=== PATIENT | male | born 1955 | race Caucasian/White ===

== ENCOUNTER → 2016-09-28 | Outpatient (CLI) | payer MEDICAID | LOC: MW.CHRC 14:46 | PROVIDERS: ATTEND Family Medicine | DX: K59.00 Constipation, unspecified (principal) | CPT/HCPCS: 36415; 80053; 82140; 85025 ==

== ENCOUNTER → 2016-12-01 | Outpatient (CLI) | payer MEDICAID ==
--- NOTE | 2016-12-05 09:04 | CR ---
EXAMINATION: The lumbar spine HISTORY: Low back pain COMPARISON: None TECHNIQUE: AP and lateral views FINDINGS: There is mild wedging of the L1 vertebral body. Bone mineralization otherwise appears norm al to mildly osteopenic. Mild marginal osteophytes are noted. No acute appearing fracture or disloca tion. The SI joints are symmetric. The vertebral body heights are grossly maintained. IMPRESSION: 1. Mild compression of the L1 vertebral body. 2. Mild degenerative changes noted.
== END ==
LOC: MW.CHRC 13:31
PROVIDERS: ATTEND Family Medicine
DX: M54.5 Low back pain (principal)
CPT/HCPCS: 72100; 72100-26

== ENCOUNTER → 2016-12-09 | Outpatient (CLI) | payer MEDICAID ==
--- NOTE | 2016-12-12 12:24 | CT ---
EXAM DATE: 12/09/16 PATIENT'S AGE: 61 Patient: KESHAWN HEARN Facility: [facility] Site . Site : [id number] Study: CT-Spine Lumbar WO CONT MW-12/09/2016 4:51:57 PM Ordering Physician: Saima Damon Final Report: Indication: 61-year-old male. L1 compression deformity noted on x-ray December 01, 2016. Cirrhosis. TIPS shunt. Technique: Axial images at 2 and 3 mm collimation. Raw data re-formatted in sagittal and coronal planes. Comparison: Pertinent portions of an abdomen/pelvis CT September 14, 2016. Findings: Mild lumbar scoliosis is convex right. There is mild chronic loss of vertebral body height at L1 with superior endplate Schmorl node. There are no acute fracture lines. T11-12: Minor anterior marginal spurring. Mild left side arthrosis. No significant central or foraminal. T12-L1: Anterior marginal spurring. No central or foraminal stenosis. L1-2: Disc bulge. Left far lateral marginal osteophyte. Minor retrolisthesis. No significant central or foraminal stenosis. L2-3: Annular bulge. Minor anterior spurring. Superior endplate Schmorl node. No significant central or foraminal stenosis. L3-4: Disc bulge. Anterior marginal spurring. Minor retrolisthesis. Mild facet arthrosis. No significant central or foraminal stenosis. L4-5: Mild facet arthrosis. Schmorl is nodes. Annular bulge. No significant central or foraminal stenosis. L5-S1: Moderate facet arthrosis. Annular bulge. No significant central or foraminal stenosis. Visualized portions sacrum are normal. Bridging osteophyte at the anterior superior aspect the left SI joint. Impression: 1. No evidence for acute lumbar compression fracture. 2. Morphology of the lumbar vertebral bodies is unchanged as far back as September 14, 2016. 3. Multilevel Schmorl nodes and mild chronic loss of vertebral body height at L1. 4. Mild multilevel spondylosis/listhesis detailed above without significant central or foraminal stenosis. Please note that all CT scans at this facility use dose modulation, iterative reconstruction, and/or weight-based dosing when appropriate to reduce radiation dose to as low as reasonably achievable. Dictated by Андрей Barrett MD @ Dec 10 2016 12:27PM Signed by: Андрей Barrett MD @12/10/2016 12:36:54 PM (Electronic Signature) Report Signed by Proxy. MTDD
== END ==
LOC: MW.CHRC 15:48
PROVIDERS: ATTEND Family Medicine
DX: S32.010A Wedge compression fracture of first lumbar vertebra, initial encounter for closed fracture (principal)
CPT/HCPCS: 72131; 72131-26

== ENCOUNTER 2016-12-11 14:43 | Emergency (ER) | payer MEDICAID ==
[2016-12-11] MEDS ORDERED: Gabapentin 300 MG Cap PO ONE (14:59)
--- NOTE | 2016-12-11 16:31 | EDM.PDOC ---
ED HPI GENERAL MEDICAL PROBLEM - General Chief Complaint: Medication Administration Stated Complaint: BACK PAIN Time Seen by Provider: 12/11/16 15:00 Source of Information: Reports: Patient History Limitations: Reports: No Limitations - History of Present Illness INITIAL COMMENTS - FREE TEXT/NARRATIVE: History of present illness: [61-year-old male comes in complaining of chronic pain indicates that he has significant amount of medication that are not helping him with his back pain. Patient indicates that he has some fractures of his vertebrae that he has a followup appointment for tomorrow but he comes in today seeking some help with his pain that he states his mid back and radiates down to both legs] Review of systems: As per history of present illness and below otherwise all systems reviewed and negative. Past medical history: As per history of present illness and as reviewed below otherwise noncontributory. Surgical history: As per history of present illness and as reviewed below otherwise noncontributory. Social history: No reported history of drug or alcohol abuse. Family history: As per history of present illness and as reviewed below otherwise noncontributory. Physical exam: HEENT: Atraumatic, normocephalic, pupils reactive, negative for conjunctival pallor or scleral icterus, mucous membranes moist, throat clear, neck supple, nontender, trachea midline. Lungs: Clear to auscultation, breath sounds equal bilaterally, chest nontender. Heart: S1S2, regular, negative for clicks, rubs, or JVD. Abdomen: Soft, nondistended, nontender. Negative for masses or hepatosplenomegaly. Negative for costovertebral tenderness. Pelvis: Stable nontender. Genitourinary: Deferred. Rectal: Deferred. Extremities: Atraumatic, negative for cords or calf pain. Neurovascular unremarkable. Neuro: Awake, alert, oriented. Cranial nerves II through XII unremarkable. Cerebellum unremarkable. Motor and sensory unremarkable throughout. Exam nonfocal. Close as well as benign save as noted in history of present illness subjective complaints and guarding noted Diagnostics: [] Therapeutics: [Gabapentin] Impression: [Back pain] Plan: [Appointment tomorrow] Definitive disposition and diagnosis as appropriate pending reevaluation and review of above. Back Pain Score (Numeric/FACES): 10 - Related Data Allergies Allergy/AdvReac Type Severity Reaction Status Date / Time codeine Allergy Hives Verified 12/11/16 14:53 zolpidem [From Ambien] AdvReac Acid Reflux Verified 12/11/16 14:53 Home Meds: Home Meds Diltiazem [Tiazac] 120 mg PO DAILY 10/19/14 [History] Furosemide [Lasix] 40 mg PO QAM 10/19/14 [History] Propranolol [Inderal] 10 mg PO BID 10/19/14 [History] Rifaximin [Xifaxan] 550 mg PO BID 10/20/14 [History] Cyclobenzaprine [Flexeril] 10 mg PO BID 04/30/16 [History] Prochlorperazine [Compazine] 1 tab PO Q4H PRN 04/30/16 [History] Cephalexin [Keflex] 500 mg PO QID #28 capsule 09/03/16 [Rx] oxyCODONE HCl [Oxycodone HCl] 30 mg PO Q6HR 09/03/16 [History] Lactulose [Cephulac] 30 ml PO BID 09/14/16 [History] Past Medical History HEENT History: Reports: None Cardiovascular History: Reports: Arrhythmia Other Cardiovascular History: A Fib Respiratory History: Reports: None Gastrointestinal History: Reports: Bowel Obstruction, Cirrhosis Genitourinary History: Reports: None Musculoskeletal History: Reports: None Neurological History: Reports: None Psychiatric History: Reports: Addiction Other Psychiatric History: ETOH Endocrine/Metabolic History: Reports: None Hematologic History: Reports: None Immunologic History: Reports: None Oncologic (Cancer) History: Reports: None Dermatologic History: Reports: None - Infectious Disease History Infectious Disease History: Reports: Hepatitis C - Past Surgical History Head Surgeries/Procedures: Reports: None Musculoskeletal Surgical History: Reports: Other (See Below) Social & Family History - Family History Family Medical History: Noncontributory - Tobacco Use Smoking Status *Q: Never Smoker Years of Tobacco use: 20 Used Tobacco, but Quit: Yes Month Tobacco Last Used: 30 years ago Second Hand Smoke Exposure: No - Caffeine Use Caffeine Use: Reports: None Caffeine Use Comment: unknown - Alcohol Use Days Per Week of Alcohol Use: 0 - Recreational Drug Use Recreational Drug Use: No Drug Use in Last 12 Months: No Recreational Drug Type: Reports: Amphetamines (Speed), Cocaine, Marijuana/ Hashish Recreational Drug Use Frequency: Not Used In Over 1 Year Recreational Drug Last Use: november 2013 ED ROS GENERAL - Review of Systems Review Of Systems: See Below (See history of present illness) ED EXAM, GENERAL - Physical Exam Exam: See Below (History of present illness) Course - Vital Signs Last Recorded V/S: Last Vital Signs Temp 36.3 C 12/11/16 15:35 Pulse 111 H 12/11/16 14:50 Resp 16 12/11/16 14:50 BP 128/83 12/11/16 15:35 Pulse Ox 96 12/11/16 14:50 - Orders/Labs/Meds Meds: Medications Discontinued Medications Generic Name Dose Route Start Last Admin Trade Name Caro PRN Reason Stop Dose Admin Gabapentin 300 mg 12/11/16 14:59 12/11/16 15:33 Neurontin PO 12/11/16 15:00 300 mg ONETIME ONE Administration Departure - Departure Time of Disposition: 16:29 Disposition: Home, Self-Care 01 Condition: good Clinical Impression: Back pain - Discharge Information Forms: ED Department Discharge Additional Instructions: The following information is given to patients seen in the emergency department who are being discharged to home. This information is to outline your options for follow-up care. We provide all patients seen in our emergency department with a follow-up referral. The need for follow-up, as well as the timing and circumstances, are variable depending upon the specifics of your emergency department visit. If you don't have a primary care physician on staff, we will provide you with a referral. We always advise you to contact your personal physician following an emergency department visit to inform them of the circumstance of the visit and for follow-up with them and/or the need for any referrals to a consulting specialist. The emergency department will also refer you to a specialist when appropriate. This referral assures that you have the opportunity for follow-up care with a specialist. All of these measure are taken in an effort to provide you with optimal care, which includes your follow-up. Under all circumstances we always encourage you to contact your private physician who remains a resource for coordinating your care. When calling for follow-up care, please make the office aware that this follow-up is from your recent emergency room visit. If for any reason you are refused follow-up, please contact the [facility] Emergency Department at and asked to speak to the emergency department charge nurse. Followup the primary care provider tomorrow schedule Continue taking medication as needed Return to ER only for reasons as needed as discussed
[2016-12-11 17:03] VITALS: BP 150/120
== END 2016-12-11 16:55 | disposition home or self-care (01) ==
LOC: MW.ED 14:43
DX: M54.9 Dorsalgia, unspecified (principal); I48.91 Unspecified atrial fibrillation; Z88.8 Allergy status to other drugs, medicaments and biological substances; Z88.5 Allergy status to narcotic agent; Z86.19 Personal history of other infectious and parasitic diseases
CPT/HCPCS: 99281; A9270; 99283

== ENCOUNTER 2017-01-12 09:15 | Emergency (ER) | payer MEDICAID ==
--- NOTE | 2017-01-12 10:10 | EDM.PDOC ---
ED HPI GENERAL MEDICAL PROBLEM - General Chief Complaint: Abdominal Pain Stated Complaint: CHECK STITCHES Time Seen by Provider: 01/12/17 09:52 - History of Present Illness INITIAL COMMENTS - FREE TEXT/NARRATIVE: HISTORY AND PHYSICAL: History of present illness: The patient is a 61-year-old male who is well known to me as he has a history of cirrhosis and liver disease and other medical problems for which she has been in the ER in the past and he presents today for evaluation of his incision on his abdomen. Patient underwent ventral hernia repair in [facility] in [place] 3 days ago and noticed some drainage from the wound today and he is concerned. He did not contact his physician that did the surgery and he also says that he is having some pain for which he needs pain medication. He says that he received pain medication at his discharge but he has run out and it was dilated. Review of systems: As per history of present illness and below otherwise all systems reviewed and negative. Past medical history: As per history of present illness and as reviewed below otherwise noncontributory. Surgical history: As per history of present illness and as reviewed below otherwise noncontributory. Social history: No reported history of drug or alcohol abuse. Family history: As per history of present illness and as reviewed below otherwise noncontributory. Physical exam: Gen.: Well-developed well-nourished man who is nontoxic and vital signs of a noted by me. HEENT: Atraumatic, normocephalic, negative for conjunctival pallor or scleral icterus, mucous membranes moist, throat clear, neck supple, nontender, trachea midline. Lungs: Clear to auscultation, breath sounds equal bilaterally, chest nontender. Heart: S1S2, regula rate and rhythm no overt murmurs Abdomen: Soft, nondistended, nontender. Negative for masses but he has a very enlarged liver which is not atypical for this patient and it is nontender, bowel sounds are normoactive. His midline ventral incision is clean and dry with ty intact and has minimal pink erythema at the surround and there is no fluctuance and no overt drainage that I can express. On the patient's jeans some serosanguineous fluid is seen and when he dabs it with the tissue you can see the serosanguineous fluid. I am not able to express any of this. He has no discrete tenderness in this region. Pelvis: Stable nontender. Genitourinary: Deferred. Rectal: Deferred. Extremities: Atraumatic, negative for cords or calf pain. Neurovascular unremarkable. Neuro: Awake, alert, oriented. Cranial nerves II through XII unremarkable. Cerebellum unremarkable. Motor and sensory unremarkable throughout. Exam nonfocal. Diagnostics: [] Therapeutics: Wound care I reassured the patient that this serosanguineous fluid was not worrisome and I advised him on things to be monitoring and reasons to return to the ED. I also told him to contact his surgeon for pain medication and that I could give him a few tablets for today but otherwise he would need to contact that doctor or his local provider Dr. Coates for more meds. He is somewhat upset about that. In light of his liver disease I offered him Vicoprofen which she says he will not take Motrin products and he will not take tramadol. He says he has taken hydrocodone and Percocet in the past so I'll only give him a few hydrocodone in light of his liver history. Again I advised him to follow-up with his primary care or his surgeon Impression: Abdominal wound evaluation stable Definitive disposition and diagnosis as appropriate pending reevaluation and review of above. Abdomen Pain Score (Numeric/FACES): 9 - Related Data Allergies Allergy/AdvReac Type Severity Reaction Status Date / Time codeine Allergy Hives Verified 01/12/17 09:43 zolpidem [From Ambien] AdvReac Acid Reflux Verified 01/12/17 09:43 Home Meds: Home Meds Diltiazem [Tiazac] 120 mg PO DAILY 10/19/14 [History] Propranolol [Inderal] 10 mg PO BID 10/19/14 [History] Rifaximin [Xifaxan] 550 mg PO BID 10/20/14 [History] Cyclobenzaprine [Flexeril] 10 mg PO DAILY 04/30/16 [History] Prochlorperazine [Compazine] 1 tab PO Q4H PRN 04/30/16 [History] Cephalexin [Keflex] 500 mg PO QID #28 capsule 09/03/16 [Rx] Lactulose [Cephulac] 30 ml PO BID 09/14/16 [History] Past Medical History HEENT History: Reports: None Cardiovascular History: Reports: Arrhythmia Other Cardiovascular History: A Fib Respiratory History: Reports: None Gastrointestinal History: Reports: Bowel Obstruction, Cirrhosis Genitourinary History: Reports: None Musculoskeletal History: Reports: None Neurological History: Reports: None Psychiatric History: Reports: Addiction Other Psychiatric History: History of ETOH Endocrine/Metabolic History: Reports: None Hematologic History: Reports: None Immunologic History: Reports: None Oncologic (Cancer) History: Reports: None Dermatologic History: Reports: None - Infectious Disease History Infectious Disease History: Reports: Hepatitis C - Past Surgical History Head Surgeries/Procedures: Reports: None GI Surgical History: Reports: Cholecystectomy, Hernia, Abdominal, Hernia, Inguinal Musculoskeletal Surgical History: Reports: Other (See Below) Social & Family History - Family History Family Medical History: Noncontributory - Tobacco Use Smoking Status *Q: Former Smoker Years of Tobacco use: 5 Used Tobacco, but Quit: Yes Month Tobacco Last Used: 1 Second Hand Smoke Exposure: No - Caffeine Use Caffeine Use: Reports: None Caffeine Use Comment: unknown - Alcohol Use Days Per Week of Alcohol Use: 0 - Recreational Drug Use Recreational Drug Use: No Drug Use in Last 12 Months: No Recreational Drug Type: Reports: Amphetamines (Speed), Cocaine, Marijuana/ Hashish Recreational Drug Use Frequency: Not Used In Over 1 Year Recreational Drug Last Use: november 2013 ED ROS GENERAL - Review of Systems Review Of Systems: ROS reveals no pertinent complaints other than HPI. ED EXAM, GENERAL - Physical Exam Exam: See Below (See dictation) Course - Vital Signs Last Recorded V/S: Last Vital Signs Temp 35.9 C 01/12/17 09:30 Pulse 90 01/12/17 09:30 Resp 15 01/12/17 09:30 BP 131/93 H 01/12/17 09:30 Pulse Ox 98 01/12/17 09:30 Departure - Departure Time of Disposition: 10:10 Disposition: Home, Self-Care 01 Condition: Good Clinical Impression: Encounter for wound re-check - Discharge Information Forms: ED Department Discharge Additional Instructions: The following information is given to patients seen in the emergency department who are being discharged to home. This information is to outline your options for follow-up care. We provide all patients seen in our emergency department with a follow-up referral. The need for follow-up, as well as the timing and circumstances, are variable depending upon the specifics of your emergency department visit. If you don't have a primary care physician on staff, we will provide you with a referral. We always advise you to contact your personal physician following an emergency department visit to inform them of the circumstance of the visit and for follow-up with them and/or the need for any referrals to a consulting specialist. The emergency department will also refer you to a specialist when appropriate. This referral assures that you have the opportunity for followup care with a specialist. All of these measure are taken in an effort to provide you with optimal care, which includes your followup. Under all circumstances we always encourage you to contact your private physician who remains a resource for coordinating your care. When calling for followup care, please make the office aware that this follow-up is from your recent emergency room visit. If for any reason you are refused follow-up, please contact the [facility] emergency department at and ask to speak to the emergency department charge nurse. [address] [place] [address] Please follow-up with Dr. Coates in the clinic for further pain medication and evaluation and also contacted her surgeon at [facility] for further management recommendations and pain recommendations. Expect some drainage from the area and return to ER as needed and as we discussed.
== END 2017-01-12 10:25 | disposition home or self-care (01) ==
LOC: MW.ED 09:15
CPT/HCPCS: 99282; 99283

== ENCOUNTER 2017-01-17 01:10 | Emergency (ER) | payer MEDICAID ==
[2017-01-17] MEDS ORDERED: Sodium Chloride 0.9% 2.5 ML Syringe FLUSH PRN (01:45)
[2017-01-17] MEDS ORDERED: Sodium Chloride 0.9% 10 ML Syringe FLUSH PRN (01:45)
[2017-01-17] MEDS ORDERED: Sodium Chloride 0.9% 1,000 ML IV SCH (01:45)
--- NOTE | 2017-01-17 01:49 | EDM.PDOC ---
[id number]: STOMACH SWOLLEN Time Seen by Provider: 01/17/17 01:38 - History of Present Illness INITIAL COMMENTS - FREE TEXT/NARRATIVE: HISTORY AND PHYSICAL: History of present illness: Patient is a 61-year-old white male with history of liver cirrhosis and multiple other medical problems who is one-week status post herniorrhaphy for abdominal wall hernia who comes in now with redness swelling and pain incision site he's not report any fever or chills he states it is slightly warmer there' s been some intermittent scant discharge in the erythema has increased per significant other. He's had no chest pain shortness of breath or other concern Review of systems: As per history of present illness and below otherwise all systems reviewed and negative. Past medical history: As per history of present illness and as reviewed below otherwise noncontributory. Surgical history: As per history of present illness and as reviewed below otherwise noncontributory. Social history: No reported history of drug or alcohol abuse. Family history: As per history of present illness and as reviewed below otherwise noncontributory. Physical exam: HEENT: Atraumatic, normocephalic, pupils reactive, negative for conjunctival pallor or scleral icterus, mucous membranes moist, throat clear, neck supple, nontender, trachea midline. Lungs: Clear to auscultation, breath sounds equal bilaterally, chest nontender. Heart: S1S2, regular, negative for clicks, rubs, or JVD. Abdomen: Soft, protuberant ty are noted be in place in his midline incision with a herniorrhaphy was performed there is a fairly large area of surrounding erythema slightly warm to the touch there's some scant dried discharge noted Negative for masses or hepatosplenomegaly. Negative for costovertebral tenderness. Pelvis: Stable nontender. Genitourinary: Deferred. Rectal: Deferred. Extremities: Atraumatic, negative for cords or calf pain. Neurovascular unremarkable. Neuro: Awake, alert, oriented. Cranial nerves II through XII unremarkable. Cerebellum unremarkable. Motor and sensory unremarkable throughout. Exam nonfocal. Diagnostics: CBC CMP lactic acid blood culture 2 chest x-ray EKG CT abdomen and pelvis with IV contrast Therapeutics: Normal saline at 125 mL an hour vancomycin 1 g IV Impression: #1 observation one-week status post herniorrhaphy #2 history of hepatic cirrhosis #3 cellulitis, abdominal wall Definitive disposition and diagnosis as appropriate pending reevaluation and review of above. Abdominal Pain Score (Numeric/FACES): 6 - Related Data Allergies Allergy/AdvReac Type Severity Reaction Status Date / Time codeine Allergy Hives Verified 01/17/17 01:26 morphine Allergy Hallucinati Verified 01/17/17 01:31 ons zolpidem [From Ambien] AdvReac Acid Reflux Verified 01/17/17 01:26 Home Meds: Home Meds Diltiazem [Tiazac] 120 mg PO DAILY 10/19/14 [History] Propranolol [Inderal] 10 mg PO BID 10/19/14 [History] Rifaximin [Xifaxan] 550 mg PO BID 10/20/14 [History] Cyclobenzaprine [Flexeril] 10 mg PO DAILY 04/30/16 [History] Lactulose [Cephulac] 30 ml PO BID 09/14/16 [History] Past Medical History HEENT History: Reports: Impaired Vision Other HEENT History: wears glasses Cardiovascular History: Reports: Afib, Arrhythmia Other Cardiovascular History: A Fib Respiratory History: Reports: None Gastrointestinal History: Reports: Bowel Obstruction, Cirrhosis Genitourinary History: Reports: None Musculoskeletal History: Reports: None Neurological History: Reports: None Psychiatric History: Reports: Addiction Other Psychiatric History: History of ETOH Endocrine/Metabolic History: Reports: None Hematologic History: Reports: None Immunologic History: Reports: None Oncologic (Cancer) History: Reports: None Dermatologic History: Reports: None - Infectious Disease History Infectious Disease History: Reports: Chicken Pox, Hepatitis C - Past Surgical History Head Surgeries/Procedures: Reports: None GI Surgical History: Reports: Cholecystectomy, Hernia, Abdominal, Hernia, Inguinal Other GI Surgeries/Procedures: liver shunt; hernia surgery 12/2016 Musculoskeletal Surgical History: Reports: Other (See Below) Social & Family History - Family History Family Medical History: Noncontributory - Tobacco Use Smoking Status *Q: Never Smoker Years of Tobacco use: 5 Used Tobacco, but Quit: Yes Month Tobacco Last Used: 1 Second Hand Smoke Exposure: No - Caffeine Use Caffeine Use: Reports: None Caffeine Use Comment: unknown - Alcohol Use Days Per Week of Alcohol Use: 0 - Recreational Drug Use Recreational Drug Use: No Drug Use in Last 12 Months: No Recreational Drug Type: Reports: Amphetamines (Speed), Cocaine, Marijuana/ Hashish Recreational Drug Use Frequency: Not Used In Over 1 Year Recreational Drug Last Use: november 2013 ED ROS GENERAL - Review of Systems Review Of Systems: ROS reveals no pertinent complaints other than HPI. ED EXAM, GENERAL - Physical Exam Exam: See Below (See dictation) Course - Vital Signs Last Recorded V/S: Last Vital Signs Temp 36.3 C 01/17/17 04:45 Pulse 99 01/17/17 04:45 Resp 22 H 01/17/17 04:45 BP 119/84 01/17/17 04:45 Pulse Ox 93 L 01/17/17 04:45 - Orders/Labs/Meds Labs: Laboratory Tests 01/17/17 01/17/17 01/17/17 Range/Units 01:50 01:50 01:50 WBC 6.57 (4.0-11.0) K/uL RBC 4.11 L (4.50-5.90) M/uL Hgb 14.2 (13.0-17.0) g/dL Hct 39.6 (38.0-50.0) % MCV 96.4 (80.0-98.0) fL MCH 34.5 H (27.0-32.0) pg MCHC 35.9 (31.0-37.0) g/dL RDW Std Deviation 44.8 (28.0-62.0) fl RDW Coeff of Michel 13 (11.0-15.0) % Plt Count 153 (150-400) K/uL MPV 9.20 (7.40-12.00) fL Neut % (Auto) 54.0 (48.0-80.0) % Lymph % (Auto) 29.2 (16.0-40.0) % Gordon % (Auto) 11.7 (0.0-15.0) % Eos % (Auto) 4.3 (0.0-7.0) % Baso % (Auto) 0.8 (0.0-1.5) % Neut # (Auto) 3.6 (1.4-5.7) K/uL Lymph # (Auto) 1.9 (0.6-2.4) K/uL Gordon # (Auto) 0.8 (0.0-0.8) K/uL Eos # (Auto) 0.3 (0.0-0.7) K/uL Baso # (Auto) 0.1 (0.0-0.1) K/uL Nucleated RBC % 0.0 /100WBC Nucleated RBCs # 0 K/uL INR 1.23 H (0.86-1.11) Lactate 1.4 (0.20-2.00) mmol/L Sodium (136-146) mmol/L Potassium (3.5-5.1) mmol/L Chloride (98-110) mmol/L Carbon Dioxide (21-31) mmol/L BUN (6.0-23.0) mg/dL Creatinine (0.6-1.5) mg/dL Est Cr Clr Drug Dosing mL/min Estimated GFR (MDRD) ml/min Glucose (60-110) mg/dL Calcium (8.8-10.8) mg/dL Total Bilirubin (0.1-1.5) mg/dL AST (5-40) IU/L ALT (8-54) IU/L Alkaline Phosphatase (40-150) Total Protein (6.0-8.0) g/dL Albumin (3.4-4.8) g/dL Globulin (2.0-3.5) g/dL Albumin/Globulin Ratio (1.3-2.8) Urine Color Urine Appearance Urine pH (5.0-8.0) Ur Specific Powell (1.001-1.035) Urine Protein (NEGATIVE) mg/dL Urine Glucose (UA) (NEGATIVE) mg/dL Urine Ketones (NEGATIVE) mg/dL Urine Occult Blood (NEGATIVE) Urine Nitrite (NEGATIVE) Urine Bilirubin (NEGATIVE) Urine Urobilinogen (<2.0) EU/dL Ur Leukocyte Esterase (NEGATIVE) Urine RBC (0-2/HPF) Urine WBC (0-5/HPF) Ur Epithelial Cells (NONE-FEW) Urine Bacteria (NEGATIVE) 01/17/17 01/17/17 Range/Units 01:50 03:30 WBC (4.0-11.0) K/uL RBC (4.50-5.90) M/uL Hgb (13.0-17.0) g/dL Hct (38.0-50.0) % MCV (80.0-98.0) fL MCH (27.0-32.0) pg MCHC (31.0-37.0) g/dL RDW Std Deviation (28.0-62.0) fl RDW Coeff of Michel (11.0-15.0) % Plt Count (150-400) K/uL MPV (7.40-12.00) fL Neut % (Auto) (48.0-80.0) % Lymph % (Auto) (16.0-40.0) % Gordon % (Auto) (0.0-15.0) % Eos % (Auto) (0.0-7.0) % Baso % (Auto) (0.0-1.5) % Neut # (Auto) (1.4-5.7) K/uL Lymph # (Auto) (0.6-2.4) K/uL Gordon # (Auto) (0.0-0.8) K/uL Eos # (Auto) (0.0-0.7) K/uL Baso # (Auto) (0.0-0.1) K/uL Nucleated RBC % /100WBC Nucleated RBCs # K/uL INR (0.86-1.11) Lactate (0.20-2.00) mmol/L Sodium 132 L (136-146) mmol/L Potassium 4.5 (3.5-5.1) mmol/L Chloride 99 (98-110) mmol/L Carbon Dioxide 24 (21-31) mmol/L BUN 14 (6.0-23.0) mg/dL Creatinine 1.0 (0.6-1.5) mg/dL Est Cr Clr Drug Dosing 91.33 mL/min Estimated GFR (MDRD) > 60.0 ml/min Glucose 100 (60-110) mg/dL Calcium 9.5 (8.8-10.8) mg/dL Total Bilirubin 2.1 H (0.1-1.5) mg/dL AST 40 (5-40) IU/L ALT 27 (8-54) IU/L Alkaline Phosphatase 122 (40-150) Total Protein 6.9 (6.0-8.0) g/dL Albumin 3.5 (3.4-4.8) g/dL Globulin 3.4 (2.0-3.5) g/dL Albumin/Globulin Ratio 1.0 L (1.3-2.8) Urine Color YELLOW Urine Appearance CLEAR Urine pH 6.0 (5.0-8.0) Ur Specific Powell <= 1.005 (1.001-1.035) Urine Protein NEGATIVE (NEGATIVE) mg/dL Urine Glucose (UA) NEGATIVE (NEGATIVE) mg/dL Urine Ketones NEGATIVE (NEGATIVE) mg/dL Urine Occult Blood NEGATIVE (NEGATIVE) Urine Nitrite NEGATIVE (NEGATIVE) Urine Bilirubin NEGATIVE (NEGATIVE) Urine Urobilinogen 1.0 (<2.0) EU/dL Ur Leukocyte Esterase NEGATIVE (NEGATIVE) Urine RBC 0-1 (0-2/HPF) Urine WBC 0-1 (0-5/HPF) Ur Epithelial Cells MANY (NONE-FEW) Urine Bacteria FEW (NEGATIVE) Meds: Medications Discontinued Medications Generic Name Dose Route Start Last Admin Trade Name Freq PRN Reason Stop Dose Admin Sodium Chloride 1,000 mls @ 125 mls/hr 01/17/17 01:45 01/17/17 01:57 Normal Saline IV 125 mls/hr STAT JALEESA Administration Vancomycin HCl 1 gm/ Sodium 250 mls @ 250 mls/hr 01/17/17 01:45 01/17/17 02: 00 Chloride IV 01/17/17 02:44 250 mls/hr ONETIME ONE Administration Iopamidol 100 ml 01/17/17 03:11 01/17/17 03:12 Isovue Multipack-370 (76%) IVPUSH 01/17/17 03:12 100 ml ONETIME STA Administration Sodium Chloride 10 ml 01/17/17 01:45 Saline Flush FLUSH ASDIRECTED PRN Keep Vein Open Sodium Chloride 2.5 ml 01/17/17 01:45 Saline Flush FLUSH ASDIRECTED PRN Keep Vein Open Departure - Departure Time of Disposition: 03:00 Disposition: Home, Self-Care 01 Condition: Good Clinical Impression: Cellulitis - Discharge Information Instructions: Abdominal Pain, Adult, [id number] Referrals: Jaylon Coates MD [Primary Care Provider] - Forms: ED Department Discharge
[2017-01-17 02:16] LABS: CHLORIDE,CL 99 mmol/L (98-110); SODIUM,NA 132 mmol/L (136-146)
[2017-01-17] MEDS ORDERED: Iopamidol 755 MG/ML 500 ML Multipack Bottle IVPUSH STA (03:11)
[2017-01-17 05:15] VITALS: BP 119/84
--- NOTE | 2017-01-17 11:19 | CT ---
EXAM DATE: 01/17/17 PATIENT'S AGE: 61 Patient: KESHAWN HEARN Facility: [place], [place] Site . Site : 1955 Study: CT Abdomen/Pelvis W CONT [id number]/[id number]/2017 3:01:19 AM Ordering Physician: Bertha Roman Final Report: INDICATION: Status post herniorrhaphy January 09, 2017, now with drainage and abdominal pain TECHNIQUE: CT abdomen and pelvis acquired with 100 cc Isovue 370 IV contrast. COMPARISON: December 22, 2016 FINDINGS: Lower chest: Bilateral gynecomastia. . Liver: Cirrhosis with TIPS in place. No focal hepatic mass. . Spleen: Unremarkable. Pancreas: Unremarkable. Gallbladder and bile ducts: Status post cholecystectomy. Adrenal glands: Unremarkable. Kidneys: Stable left renal cyst. . GI tract: Large amount of stool within the colon. Vascular structures: Unremarkable. Lymph nodes: Unremarkable. Miscellaneous: Midline skin ty are noted consistent with history of umbilical herniorrhaphy. There is a small amount of fluid within the preperitoneal space and subcutaneous fat of the anterior abdominal wall directly deep to the skin ty. There is no definite rim enhancement to suggest abscess. No intra-abdominal abscess is seen. Mesh is seen along the right anterior abdominal wall from prior herniorrhaphy. There is a fat containing right inguinal hernia. Small amount of fluid is seen within the inguinal canal. Pelvic Organs: Unremarkable. Bones: Unremarkable for age. IMPRESSION: Small amount of fluid within the preperitoneal space and subcutaneous fat of the anterior abdominal wall directly deep to the midline umbilical herniorrhaphy skin ty. There is no definite rim enhancement to suggest abscess. No acute intra-abdominal process identified. Constipation. Hepatic cirrhosis with TIPS. Bilateral gynecomastia. Status post cholecystectomy. Please note that all CT scans at this facility use dose modulation, iterative reconstruction, and/or weight-based dosing when appropriate to reduce radiation dose to as low as reasonably achievable. Dictated by Vanessa Mabry MD @ Jan 17 2017 3:12AM (Electronic Signature) Report Signed by Proxy. [facility]
--- NOTE | 2017-01-17 11:19 | CR ---
EXAM DATE: 01/17/17 PATIENT'S AGE: 61 Patient: KESHAWN HEARN Facility: [place], [place] Site . Site : 1955 Study: XRay Chest [id number]/27/2017 3:01:58 AM Ordering Physician: Bertha Roman Final Report: INDICATION: Pain, shortness of breath TECHNIQUE: Chest 2 views. COMPARISON: Abdomen pelvis CT January 17, 2017 FINDINGS: Cardiovascular and mediastinum: Heart size and vasculature are normal in caliber and appearance. Mediastinum is within normal limits. Lungs and pleural spaces: Lungs are clear. No sign of infiltrate or mass. No sign of pleural effusion. No pneumothorax. Bones and soft tissues: No acute findings. Remote deformity of the distal left clavicle. IMPRESSION: No sign of acute disease. Dictated by Vanessa Mabry MD @ Jan 17 2017 3:10AM (Electronic Signature) Report Signed by Proxy. LOUIE
== END 2017-01-17 04:45 | disposition home or self-care (01) ==
LOC: MW.ED 01:10
DX: T81.4XXA Infection following a procedure, initial encounter (principal); L03.311 Cellulitis of abdominal wall; I48.91 Unspecified atrial fibrillation; Z88.5 Allergy status to narcotic agent; Z79.899 Other long term (current) drug therapy; Z88.8 Allergy status to other drugs, medicaments and biological substances; Z90.49 Acquired absence of other specified parts of digestive tract
CPT/HCPCS: 36415; 71020; 74177; 80053; 81001; 83605; 85025; 85610; 87040; 93005; 96361; 96365; 99285; J3370; J7040; J7050; Q9967; 99284

== ENCOUNTER 2017-01-22 12:57 | Emergency (ER) | payer MEDICAID ==
[2017-01-22] MEDS ORDERED: Sodium Chloride 0.9% 1,000 ML IV ONE (13:13)
[2017-01-22] MEDS ORDERED: Ketorolac 30 MG/ML SDV IVPUSH ONE (13:13)
[2017-01-22 13:49] LABS: CHLORIDE,CL 112 mmol/L (98-110); SODIUM,NA 136 mmol/L (136-146)
[2017-01-22] MEDS ORDERED: cefTRIAXone 2 GM in Premix Bag 1 BAG IV ONE (14:00)
--- NOTE | 2017-01-22 15:00 | EDM.PDOC ---
ED HPI GENERAL MEDICAL PROBLEM - General Chief Complaint: Skin Complaint Stated Complaint: TY COMING OUT FROM RECENT SURGERY Time Seen by Provider: 01/22/17 13:10 Source of Information: Reports: Patient History Limitations: Reports: No Limitations - History of Present Illness INITIAL COMMENTS - FREE TEXT/NARRATIVE: History of present illness: [61-year-old male comes in with concerns of ty spontaneously coming out of an incision site and some amount of drainage. He would like to have his wound evaluated. Patient indicates that he is currently on antibiotics.] Review of systems: As per history of present illness and below otherwise all systems reviewed and negative. Past medical history: As per history of present illness and as reviewed below otherwise noncontributory. Surgical history: As per history of present illness and as reviewed below otherwise noncontributory. Social history: No reported history of drug or alcohol abuse. Family history: As per history of present illness and as reviewed below otherwise noncontributory. Physical exam: HEENT: Atraumatic, normocephalic, pupils reactive, negative for conjunctival pallor or scleral icterus, mucous membranes moist, throat clear, neck supple, nontender, trachea midline. Lungs: Clear to auscultation, breath sounds equal bilaterally, chest nontender. Heart: S1S2, regular, negative for clicks, rubs, or JVD. Abdomen: Protuberant slightly tender abdomen with midline incision with some healing noted ty intact to areas that ty are no longer in place with slight dehisecense noted secondary to tension on incision line with serous drainage noted. Negative for masses or hepatosplenomegaly. Negative for costovertebral tenderness. Pelvis: Stable nontender. Genitourinary: Deferred. Rectal: Deferred. Extremities: Atraumatic, negative for cords or calf pain. Neurovascular unremarkable. Neuro: Awake, alert, oriented. Cranial nerves II through XII unremarkable. Cerebellum unremarkable. Motor and sensory unremarkable throughout. Exam nonfocal. Diagnostics: [CBC, CMP, lactic acid] Therapeutics: [2 g Rocephin, IV fluid, Toradol] Impression: [Poor wound healing] Plan: [Continue on current antibiotics a medication follow-up with surgeon] Definitive disposition and diagnosis as appropriate pending reevaluation and review of above. Abdominal Pain Score (Numeric/FACES): 9 - Related Data Allergies Allergy/AdvReac Type Severity Reaction Status Date / Time codeine Allergy Hives Verified 01/22/17 13:03 morphine Allergy Hallucinati Verified 01/22/17 13:03 ons zolpidem [From Ambien] AdvReac Acid Reflux Verified 01/22/17 13:03 Home Meds: Home Meds Diltiazem [Tiazac] 120 mg PO DAILY 10/19/14 [History] Propranolol [Inderal] 10 mg PO BID 10/19/14 [History] Rifaximin [Xifaxan] 550 mg PO BID 10/20/14 [History] Cyclobenzaprine [Flexeril] 10 mg PO DAILY 04/30/16 [History] Lactulose [Cephulac] 30 ml PO BID 09/14/16 [History] Past Medical History HEENT History: Reports: Impaired Vision Other HEENT History: wears glasses Cardiovascular History: Reports: Afib, Arrhythmia, Hypertension Other Cardiovascular History: A Fib Respiratory History: Reports: None Gastrointestinal History: Reports: Bowel Obstruction, Cirrhosis Genitourinary History: Reports: None Musculoskeletal History: Reports: None Neurological History: Reports: None Psychiatric History: Reports: Addiction Other Psychiatric History: History of ETOH Endocrine/Metabolic History: Reports: None Hematologic History: Reports: None Immunologic History: Reports: None Oncologic (Cancer) History: Reports: None Dermatologic History: Reports: None - Infectious Disease History Infectious Disease History: Reports: Chicken Pox, Measles, Mumps - Past Surgical History Head Surgeries/Procedures: Reports: None HEENT Surgical History: Reports: Tonsillectomy Cardiovascular Surgical History: Reports: None GI Surgical History: Reports: Cholecystectomy, Hernia, Abdominal, Hernia, Inguinal Other GI Surgeries/Procedures: liver shunt; hernia surgery 01/09/2017 Musculoskeletal Surgical History: Reports: None Social & Family History - Family History Family Medical History: Noncontributory - Tobacco Use Smoking Status *Q: Former Smoker Years of Tobacco use: 5 Used Tobacco, but Quit: Yes Month Tobacco Last Used: "35years ago" Second Hand Smoke Exposure: No - Caffeine Use Caffeine Use: Reports: Soda Caffeine Use Comment: 1drink/day - Alcohol Use Days Per Week of Alcohol Use: 0 - Recreational Drug Use Recreational Drug Use: No Drug Use in Last 12 Months: No Recreational Drug Type: Reports: Amphetamines (Speed), Cocaine, Marijuana/ Hashish Recreational Drug Use Frequency: Not Used In Over 1 Year Recreational Drug Last Use: november 2013 ED ROS GENERAL - Review of Systems Review Of Systems: See Below (See history of present illness) ED EXAM, SKIN/RASH Exam: See Below (See history of present illness) Course - Vital Signs Last Recorded V/S: Last Vital Signs Temp 36.2 C 01/22/17 13:01 Pulse 79 01/22/17 13:01 Resp 20 01/22/17 13:01 BP 124/82 01/22/17 13:01 Pulse Ox 97 01/22/17 13:01 - Orders/Labs/Meds Labs: Laboratory Tests 01/22/17 01/22/17 01/22/17 Range/Units 13:18 13:18 13:18 WBC 7.68 (4.0-11.0) K/uL RBC 4.37 L (4.50-5.90) M/uL Hgb 15.1 (13.0-17.0) g/dL Hct 42.1 (38.0-50.0) % MCV 96.3 (80.0-98.0) fL MCH 34.6 H (27.0-32.0) pg MCHC 35.9 (31.0-37.0) g/dL RDW Std Deviation 46.3 (28.0-62.0) fl RDW Coeff of Michel 13 (11.0-15.0) % Plt Count 153 (150-400) K/uL MPV 8.90 (7.40-12.00) fL Neut % (Auto) 66.8 (48.0-80.0) % Lymph % (Auto) 23.7 (16.0-40.0) % [place] % (Auto) 6.9 (0.0-15.0) % Eos % (Auto) 2.2 (0.0-7.0) % Baso % (Auto) 0.4 (0.0-1.5) % Neut # (Auto) 5.1 (1.4-5.7) K/uL Lymph # (Auto) 1.8 (0.6-2.4) K/uL [place] # (Auto) 0.5 (0.0-0.8) K/uL Eos # (Auto) 0.2 (0.0-0.7) K/uL Baso # (Auto) 0.0 (0.0-0.1) K/uL Nucleated RBC % 0.0 /100WBC Nucleated RBCs # 0 K/uL Lactate 1.3 (0.20-2.00) mmol/L Sodium 136 (136-146) mmol/L Potassium 3.7 (3.5-5.1) mmol/L Chloride 112 H (98-110) mmol/L Carbon Dioxide 16 L (21-31) mmol/L BUN 6 (6.0-23.0) mg/dL Creatinine 0.8 (0.6-1.5) mg/dL Est Cr Clr Drug Dosing 114.17 mL/min Estimated GFR (MDRD) > 60.0 ml/min Glucose 98 (60-110) mg/dL Calcium 8.6 L (8.8-10.8) mg/dL Total Bilirubin 1.5 (0.1-1.5) mg/dL AST 33 (5-40) IU/L ALT 26 (8-54) IU/L Alkaline Phosphatase 118 (40-150) Total Protein 6.5 (6.0-8.0) g/dL Albumin 3.2 L (3.4-4.8) g/dL Globulin 3.3 (2.0-3.5) g/dL Albumin/Globulin Ratio 1.0 L (1.3-2.8) Meds: Medications Discontinued Medications Generic Name Dose Route Start Last Admin Trade Name Freq PRN Reason Stop Dose Admin Sodium Chloride 1,000 mls @ 999 mls/hr 01/22/17 13:13 01/22/17 13:24 Normal Saline IV 01/22/17 14:13 999 mls/hr STAT ONE Administration Ceftriaxone Sodium/Dextrose 2 50 mls @ 100 mls/hr 01/22/17 14:00 01/22/17 14: 09 gm/ Premix IV 01/22/17 14:29 100 mls/hr ONETIME ONE Administration Ketorolac Tromethamine 30 mg 01/22/17 13:13 01/22/17 13:24 Toradol IVPUSH 01/22/17 13:14 30 mg ONETIME ONE Administration Departure - Departure Time of Disposition: 15:01 Disposition: Home, Self-Care 01 Condition: Good Clinical Impression: Encounter for wound care - Discharge Information Forms: ED Department Discharge Additional Instructions: The following information is given to patients seen in the emergency department who are being discharged to home. This information is to outline your options for follow-up care. We provide all patients seen in our emergency department with a follow-up referral. The need for follow-up, as well as the timing and circumstances, are variable depending upon the specifics of your emergency department visit. If you don't have a primary care physician on staff, we will provide you with a referral. We always advise you to contact your personal physician following an emergency department visit to inform them of the circumstance of the visit and for follow-up with them and/or the need for any referrals to a consulting specialist. The emergency department will also refer you to a specialist when appropriate. This referral assures that you have the opportunity for follow-up care with a specialist. All of these measure are taken in an effort to provide you with optimal care, which includes your follow-up. Under all circumstances we always encourage you to contact your private physician who remains a resource for coordinating your care. When calling for follow-up care, please make the office aware that this follow-up is from your recent emergency room visit. If for any reason you are refused follow-up, please contact the [facility] Emergency Department at . Continue medication as already directed Follow-up with the surgeon as scheduled per his office Return to ED as needed as discussed
[2017-01-22 15:24] VITALS: BP 109/76
== END 2017-01-22 15:24 | disposition home or self-care (01) ==
LOC: MW.ED 12:57
DX: T81.31XA Disruption of external operation (surgical) wound, not elsewhere classified, initial encounter (principal); I48.91 Unspecified atrial fibrillation; I10 Essential (primary) hypertension; Z98.890 Other specified postprocedural states; Z88.5 Allergy status to narcotic agent; Z79.899 Other long term (current) drug therapy; Z88.8 Allergy status to other drugs, medicaments and biological substances; Z90.49 Acquired absence of other specified parts of digestive tract; Z87.891 Personal history of nicotine dependence
CPT/HCPCS: 80053; 83605; 85025; 96361; 96365; 96375; 99283; J0696; J1885; J7040

== ENCOUNTER 2017-02-19 17:42 | Emergency (ER) | payer MEDICAID ==
[2017-02-19] MEDS ORDERED: Sodium Chloride 0.9% 1,000 ML IV ONE (19:27)
[2017-02-19] MEDS ORDERED: traMADol 50 MG Tab PO ONE (19:27)
--- NOTE | 2017-02-19 19:32 | EDM.PDOC ---
ED HPI GENERAL MEDICAL PROBLEM - General Chief Complaint: Abdominal Pain Stated Complaint: PT HAS EXTRA FLUID Time Seen by Provider: 02/19/17 18:55 - History of Present Illness INITIAL COMMENTS - FREE TEXT/NARRATIVE: HISTORY AND PHYSICAL: History of present illness: The patient is a 62-year-old male with a known history of cirrhosis and hypertension who follows in [facility] with Dr. Jaylon Coates and is well known to me in the ER staff; he presents today with vague diffuse abdominal pain and feeling like he has to much fluid lash ascites. Patient is a known history of ascites and also abdominal wall hernias and is concerned about that today. He has not had fever chills chest pain shortness of breath vomiting or diarrhea and has been compliant with his medications. According to the patient is been mostly drinking caffeinated products and not much water and he is not fluid restricted. He has no discrete area of pain and he says he always has some chronic abdominal pain he was working concerned about fluid accumulation. He has no leg swelling and says he's been eating well. Is no urinary complaints. Review of systems: As per history of present illness and below otherwise all systems reviewed and negative. Past medical history: As per history of present illness and as reviewed below otherwise noncontributory. Surgical history: As per history of present illness and as reviewed below otherwise noncontributory. Social history: No reported history of drug or alcohol abuse. Family history: As per history of present illness and as reviewed below otherwise noncontributory. Physical exam: Gen.: Well-developed well-nourished man who is nontoxic and vital signs been reviewed by me. He speaking clearly and easily in the ED and looks in no distress and moves very easily in the ED. HEENT: Atraumatic, normocephalic, pupils reactive, negative for conjunctival pallor or scleral icterus, mucous membranes moist, throat clear, neck supple, nontender, trachea midline. Lungs: Clear to auscultation, breath sounds equal bilaterally, chest nontender. No worker breathing or sensory muscle use Heart: S1S2, regular, negative for clicks, rubs, or JVD. Abdomen: Soft, nondistended, nontender. Patient has well healed abdominal scars in the right upper quadrant as well as midline umbilically and he has a large abdominal wall hernia in the right upper quadrant which is soft. Patient does have some fluid wave and some ascites but it is not tense and he is not distended or tympanitic. Negative for masses and rebound/guarding Negative for costovertebral tenderness. Pelvis: Stable nontender. Genitourinary: Deferred. Rectal: Deferred. Extremities: Atraumatic, negative for cords or calf pain. Neurovascular unremarkable. No pedal edema or leg asymmetry Neuro: Awake, alert, oriented. Cranial nerves II through XII unremarkable. Cerebellum unremarkable. Motor and sensory unremarkable throughout. Exam nonfocal. Diagnostics: CBC CMP amylase lipase UA abdominal x-rays I have compared today's BUN/creatinine with one performed on January 22 where it was 6/0.8 as well as one performed on January 17 when it was 14/1.0. Therapeutics: IV fluids tramadol patient was offered Toradol In light of the patient's very benign exam and his stated history of drinking mostly caffeinated products with an elevated BUN/creatinine I will go ahead and give him some IV fluids. He says he is not fluid restricted and so we will perform this and reevaluate. Also given some tramadol and will await the urine results. 2054: Patient tells nursing that he does not feel the tramadol works. He told me earlier doesn't like to take from medication constipates him. I do not feel that narcotics are indicated so I'll offer him one dose of Toradol here in the ER. I will advise him that he has to follow-up with his provider at [facility] and discuss more chronic pain management. 2129: The patient is aware of delays with radiology reading his abdominal x- rays and that is soon as the results are available I will disposition him I've also advised the patient that he needs to follow-up and get a repeat BUN/ creatinine to monitor that. Impression: Abdominal distention with history of cirrhosis and ascites stable, mild dehydration / elevation of BUN/creatinine Definitive disposition and diagnosis as appropriate pending reevaluation and review of above. abdominal Pain Score (Numeric/FACES): 8 - Related Data Allergies Allergy/AdvReac Type Severity Reaction Status Date / Time codeine Allergy Hives Verified 02/19/17 17:57 morphine Allergy Hallucinati Verified 02/19/17 17:57 ons zolpidem [From Ambien] AdvReac Acid Reflux Verified 02/19/17 17:57 Home Meds: Home Meds Diltiazem [Tiazac] 120 mg PO DAILY 10/19/14 [History] Propranolol [Inderal] 10 mg PO BID 10/19/14 [History] Rifaximin [Xifaxan] 550 mg PO BID 10/20/14 [History] Cyclobenzaprine [Flexeril] 10 mg PO DAILY 04/30/16 [History] Lactulose [Cephulac] 30 ml PO BID 09/14/16 [History] Past Medical History HEENT History: Reports: Impaired Vision Other HEENT History: wears glasses Cardiovascular History: Reports: Afib, Arrhythmia, Hypertension Other Cardiovascular History: A Fib Respiratory History: Reports: None Gastrointestinal History: Reports: Bowel Obstruction, Cirrhosis Genitourinary History: Reports: None Musculoskeletal History: Reports: None Neurological History: Reports: None Psychiatric History: Reports: Addiction Other Psychiatric History: History of ETOH Endocrine/Metabolic History: Reports: None Hematologic History: Reports: None Immunologic History: Reports: None Oncologic (Cancer) History: Reports: None Dermatologic History: Reports: None - Infectious Disease History Infectious Disease History: Reports: Chicken Pox, Measles, Mumps - Past Surgical History Head Surgeries/Procedures: Reports: None HEENT Surgical History: Reports: Tonsillectomy Cardiovascular Surgical History: Reports: None GI Surgical History: Reports: Cholecystectomy, Hernia, Abdominal, Hernia, Inguinal Other GI Surgeries/Procedures: liver shunt; hernia surgery 01/09/2017 Musculoskeletal Surgical History: Reports: None Social & Family History - Family History Family Medical History: Noncontributory - Tobacco Use Smoking Status *Q: Never Smoker Years of Tobacco use: 5 Used Tobacco, but Quit: Yes Month Tobacco Last Used: "35years ago" Second Hand Smoke Exposure: No - Caffeine Use Caffeine Use: Reports: Soda Caffeine Use Comment: 1drink/day - Alcohol Use Days Per Week of Alcohol Use: 0 - Recreational Drug Use Recreational Drug Use: No Drug Use in Last 12 Months: No Recreational Drug Type: Reports: Amphetamines (Speed), Cocaine, Marijuana/ Hashish Recreational Drug Use Frequency: Not Used In Over 1 Year Recreational Drug Last Use: november 2013 ED ROS GENERAL - Review of Systems Review Of Systems: ROS reveals no pertinent complaints other than HPI. ED EXAM, GENERAL - Physical Exam Exam: See Below (See dictation) Course - Vital Signs Last Recorded V/S: Last Vital Signs Temp 36.5 C 02/19/17 17:59 Pulse 79 02/19/17 21:08 Resp 17 02/19/17 21:08 BP 127/104 H 02/19/17 21:08 Pulse Ox 97 02/19/17 21:08 - Orders/Labs/Meds Orders: Active Orders 24 hr Category Date Time Status Abdomen 2V AP Flat Upright [CR] Stat Exams 02/19/17 19:25 Taken Labs: Laboratory Tests 02/19/17 02/19/17 02/19/17 Range/Units 18:37 18:37 19:36 WBC 6.42 (4.0-11.0) K/uL RBC 4.41 L (4.50-5.90) M/uL Hgb 15.3 (13.0-17.0) g/dL Hct 42.9 (38.0-50.0) % MCV 97.3 (80.0-98.0) fL MCH 34.7 H (27.0-32.0) pg MCHC 35.7 (31.0-37.0) g/dL RDW Std Deviation 48.2 (28.0-62.0) fl RDW Coeff of Michel 13 (11.0-15.0) % Plt Count 154 (150-400) K/uL MPV 9.00 (7.40-12.00) fL Neut % (Auto) 66.8 (48.0-80.0) % Lymph % (Auto) 23.2 (16.0-40.0) % [place] % (Auto) 7.5 (0.0-15.0) % Eos % (Auto) 1.9 (0.0-7.0) % Baso % (Auto) 0.6 (0.0-1.5) % Neut # (Auto) 4.3 (1.4-5.7) K/uL Lymph # (Auto) 1.5 (0.6-2.4) K/uL [place] # (Auto) 0.5 (0.0-0.8) K/uL Eos # (Auto) 0.1 (0.0-0.7) K/uL Baso # (Auto) 0.0 (0.0-0.1) K/uL Nucleated RBC % 0.0 /100WBC Nucleated RBCs # 0 K/uL Sodium 136 (136-146) mmol/L Potassium 4.5 (3.5-5.1) mmol/L Chloride 106 (98-110) mmol/L Carbon Dioxide 22 (21-31) mmol/L BUN 26 H (6.0-23.0) mg/dL Creatinine 2.1 H (0.6-1.5) mg/dL Est Cr Clr Drug Dosing 42.95 mL/min Estimated GFR (MDRD) 32.3 ml/min Glucose 91 (60-110) mg/dL Calcium 9.7 (8.8-10.8) mg/dL Total Bilirubin 1.6 H (0.1-1.5) mg/dL AST 45 H (5-40) IU/L ALT 33 (8-54) IU/L Alkaline Phosphatase 131 (40-150) Total Protein 7.3 (6.0-8.0) g/dL Albumin 3.7 (3.4-4.8) g/dL Globulin 3.6 H (2.0-3.5) g/dL Albumin/Globulin Ratio 1.0 L (1.3-2.8) Amylase 48 (10-90) U/L Lipase 27 (7-80) U/L Urine Color YELLOW Urine Appearance CLEAR Urine pH 6.0 (5.0-8.0) Ur Specific [place] 1.025 (1.001-1.035) Urine Protein NEGATIVE (NEGATIVE) mg/dL Urine Glucose (UA) NEGATIVE (NEGATIVE) mg/dL Urine Ketones NEGATIVE (NEGATIVE) mg/dL Urine Occult Blood NEGATIVE (NEGATIVE) Urine Nitrite NEGATIVE (NEGATIVE) Urine Bilirubin NEGATIVE (NEGATIVE) Urine Urobilinogen 0.2 (<2.0) EU/dL Ur Leukocyte Esterase NEGATIVE (NEGATIVE) Urine RBC 0-1 (0-2/HPF) Urine WBC 0-1 (0-5/HPF) Ur Epithelial Cells OCCASIONAL (NONE-FEW) Amorphous Sediment RARE (NEGATIVE) Urine Bacteria FEW (NEGATIVE) Hyaline Casts 2-4 (0-2/LPF) Urine Mucus FEW (NONE-MOD) Meds: Medications Discontinued Medications Generic Name Dose Route Start Last Admin Trade Name Freq PRN Reason Stop Dose Admin Sodium Chloride 1,000 mls @ 999 mls/hr 02/19/17 19:27 02/19/17 19:39 Normal Saline IV 02/19/17 20:27 999 mls/hr STAT ONE Administration Ketorolac Tromethamine 30 mg 02/19/17 20:55 02/19/17 21:06 Toradol IVPUSH 02/19/17 20:56 30 mg ONETIME ONE Administration Tramadol HCl 50 mg 02/19/17 19:27 02/19/17 19:38 Ultram PO 02/19/17 19:28 50 mg ONETIME ONE Administration Departure - Departure Time of Disposition: 22:04 Disposition: Home, Self-Care 01 Condition: Good Clinical Impression: Dehydration Abdominal pain Qualifiers: Abdominal location: generalized Qualified Code(s): R10.84 - Generalized abdominal pain - Discharge Information Forms: ED Department Discharge Additional Instructions: The following information is given to patients seen in the emergency department who are being discharged to home. This information is to outline your options for follow-up care. We provide all patients seen in our emergency department with a follow-up referral. The need for follow-up, as well as the timing and circumstances, are variable depending upon the specifics of your emergency department visit. If you don't have a primary care physician on staff, we will provide you with a referral. We always advise you to contact your personal physician following an emergency department visit to inform them of the circumstance of the visit and for follow-up with them and/or the need for any referrals to a consulting specialist. The emergency department will also refer you to a specialist when appropriate. This referral assures that you have the opportunity for followup care with a specialist. All of these measure are taken in an effort to provide you with optimal care, which includes your followup. Under all circumstances we always encourage you to contact your private physician who remains a resource for coordinating your care. When calling for followup care, please make the office aware that this follow-up is from your recent emergency room visit. If for any reason you are refused follow-up, please contact the [facility] emergency department at and ask to speak to the emergency department charge nurse. [address] [place] [address] Please call and follow-up with Dr. Coates in the clinic tomorrow to discuss pain management as well as to reevaluate your kidney function. Please push hydration and avoid caffeinated products. Return to ER as needed and as discussed - My Orders Last 24 Hours: My Active Orders 02/19/17 19:25 Abdomen 2V AP Flat Upright [CR] Stat - Assessment/Plan Last 24 Hours: My Active Orders 02/19/17 19:25 Abdomen 2V AP Flat Upright [CR] Stat
[2017-02-19] MEDS ORDERED: Ketorolac 30 MG/ML SDV IVPUSH ONE (20:55)
[2017-02-20 03:35] VITALS: BP 140/91
--- NOTE | 2017-02-21 10:16 | CR ---
EXAM DATE: 02/19/17 PATIENT'S AGE: 62 Patient: KESHAWN HEARN Facility: [facility] Site . Site : 1955 Study: XRay-Abdomen [id number]/30/2017 8:25:02 PM Ordering Physician: Doctor Paredes Final Report: INDICATION: Abdominal pain. History of cirrhosis with TIPS TECHNIQUE: Abdomen 2 view. COMPARISON: None FINDINGS: Bowel: Mildly air distended loops of bowel in the left mid abdomen but no definite evidence for bowel obstruction. Soft tissues: No sign of free air. No sign of soft tissue mass. No suspicious calcifications. TIPS stent projects over the right upper quadrant. Bones: Unremarkable for age. IMPRESSION: Mildly air distended loops of bowel in the left mid abdomen but no definite evidence for bowel obstruction. Signed by: Humza Ding MD @02/19/2017 9:34:49 PM PT/Dictated by: Humza Ding MD @ 02/19/2017 9:57:00 PM Signed by: Humza Ding MD @02/20/2017 3:36:42 PM (Electronic Signature) Report Signed by Proxy. LOUIE
== END 2017-02-19 22:30 | disposition home or self-care (01) ==
LOC: MW.ED 17:42
DX: E86.0 Dehydration (principal); R14.0 Abdominal distension (gaseous); I48.91 Unspecified atrial fibrillation; I10 Essential (primary) hypertension; Z88.5 Allergy status to narcotic agent; Z88.8 Allergy status to other drugs, medicaments and biological substances; Z79.899 Other long term (current) drug therapy
CPT/HCPCS: 36415; 74020; 80053; 81001; 82150; 83690; 85025; 96361; 96374; 99284; A9270; J1885; J7040; 99283

== ENCOUNTER 2017-02-20 20:14 | Emergency (ER) | payer MEDICAID ==
[2017-02-20 20:38] VITALS: BP 138/82
== END 2017-02-20 20:46 ==
LOC: MW.ED 20:14
DX: R10.12 Left upper quadrant pain (principal); Z53.21 Procedure and treatment not carried out due to patient leaving prior to being seen by health care provider
CPT/HCPCS: 99283

== ENCOUNTER 2017-07-25 20:41 | Emergency (ER) | payer MEDICAID ==
--- NOTE | 2017-07-25 20:56 | EDM.PDOC ---
ED HPI GENERAL MEDICAL PROBLEM - General Chief Complaint: Neuro Symptoms/Deficits Stated Complaint: MENTAL Time Seen by Provider: 07/25/17 20:55 Source of Information: Reports: Patient - History of Present Illness INITIAL COMMENTS - FREE TEXT/NARRATIVE: HISTORY AND PHYSICAL: History of present illness: [Patient with liver cirrhosis presents with confusion/delirium is not combative in any way, he states that he stopped taking his lactulose several days ago and a friend has brought him in as he is not behaving as his usual self No fever nausea vomiting chills sweats no chest pain shortness breath headache dizziness palpitation no bowel or urine symptoms ] Review of systems: As per history of present illness and below otherwise all systems reviewed and negative. Past medical history: As per history of present illness and as reviewed below otherwise noncontributory. Surgical history: As per history of present illness and as reviewed below otherwise noncontributory. Social history: No reported history of drug or alcohol abuse. Family history: As per history of present illness and as reviewed below otherwise noncontributory. Physical exam: HEENT: Atraumatic, normocephalic, pupils reactive, negative for conjunctival pallor or scleral icterus, mucous membranes moist, throat clear, neck supple, nontender, trachea midline. Lungs: Clear to auscultation, breath sounds equal bilaterally, chest nontender. Heart: S1S2, regular, negative for clicks, rubs, or JVD. Abdomen: Soft, nondistended, nontender. Negative for masses or hepatosplenomegaly. Negative for costovertebral tenderness. Pelvis: Stable nontender. Genitourinary: Deferred. Rectal: Deferred. Extremities: Atraumatic, negative for cords or calf pain. Neurovascular unremarkable. Neuro: Awake, alert, oriented. Cranial nerves II through XII unremarkable. Cerebellum unremarkable. Motor and sensory unremarkable throughout. Exam nonfocal. Diagnostics: [Lab as below EKG Chest [address] no contrast Therapeutics: [Normal saline 1 25 mL per hour ] Impression: Liver failure/cirrhosis Ammonia levels elevated Medication noncompliance Definitive disposition and diagnosis as appropriate pending reevaluation and review of above. denies pain Pain Score (Numeric/FACES): 0 - Related Data Allergies Allergy/AdvReac Type Severity Reaction Status Date / Time codeine Allergy Hives Verified 07/25/17 21:00 morphine Allergy Hallucinati Verified 07/25/17 21:00 ons zolpidem [From Ambien] AdvReac Acid Reflux Verified 07/25/17 21:00 Home Meds: Home Meds Diltiazem [Tiazac] 120 mg PO DAILY 10/19/14 [History] Propranolol [Inderal] 10 mg PO BID 10/19/14 [History] Rifaximin [Xifaxan] 550 mg PO BID 10/20/14 [History] Cyclobenzaprine [Flexeril] 10 mg PO DAILY 04/30/16 [History] Lactulose [Cephulac] 30 ml PO BID 09/14/16 [History] Past Medical History HEENT History: Reports: Impaired Vision Other HEENT History: wears glasses Cardiovascular History: Reports: Afib, Arrhythmia, Hypertension Other Cardiovascular History: A Fib Respiratory History: Reports: None Gastrointestinal History: Reports: Bowel Obstruction, Cirrhosis Genitourinary History: Reports: None Musculoskeletal History: Reports: None Neurological History: Reports: None Psychiatric History: Reports: Addiction Other Psychiatric History: History of ETOH Endocrine/Metabolic History: Reports: None Hematologic History: Reports: None Immunologic History: Reports: None Oncologic (Cancer) History: Reports: None Dermatologic History: Reports: None - Infectious Disease History Infectious Disease History: Reports: Hepatitis C - Past Surgical History Head Surgeries/Procedures: Reports: None HEENT Surgical History: Reports: Tonsillectomy Cardiovascular Surgical History: Reports: None GI Surgical History: Reports: Cholecystectomy, Hernia, Abdominal, Hernia, Inguinal Other GI Surgeries/Procedures: liver shunt; hernia surgery 01/09/2017 Musculoskeletal Surgical History: Reports: None Social & Family History - Family History Family Medical History: Noncontributory - Tobacco Use Smoking Status *Q: Never Smoker Years of Tobacco use: 5 Used Tobacco, but Quit: Yes Month Tobacco Last Used: "35years ago" Second Hand Smoke Exposure: No - Caffeine Use Caffeine Use: Reports: Soda Caffeine Use Comment: 1drink/day - Alcohol Use Days Per Week of Alcohol Use: 0 - Recreational Drug Use Recreational Drug Use: No Drug Use in Last 12 Months: No Recreational Drug Type: Reports: Amphetamines (Speed), Cocaine, Marijuana/ Hashish Recreational Drug Use Frequency: Not Used In Over 1 Year Recreational Drug Last Use: november 2013 ED ROS GENERAL - Review of Systems Review Of Systems: ROS reveals no pertinent complaints other than HPI. ED EXAM, GENERAL - Physical Exam Exam: See Below Course - Vital Signs Last Recorded V/S: Last Vital Signs Temp 97 F 07/25/17 21:00 Pulse 74 07/25/17 21:00 Resp 18 07/25/17 21:00 BP Pulse Ox 97 07/25/17 21:00 - Orders/Labs/Meds Orders: Active Orders 24 hr Category Date Time Status EKG Documentation Completion [RC] STAT Care 07/25/17 20:54 Active Chest 1V Frontal [CR] Stat Exams 07/25/17 20:54 Ordered CKMB [CHEM] Stat Lab 07/25/17 21:12 Results COMPREHENSIVE METABOLIC PN,CMP [CHEM] Stat Lab 07/25/17 21:12 Results CREATINE KINASE,CK [CHEM] Stat Lab 07/25/17 21:12 Results DRUG SCREEN, URINE [URCHEM] Stat Lab 07/25/17 21:05 Uncollected TROPONIN I [CHEM] Stat Lab 07/25/17 21:12 Results UA W/MICROSCOPIC [URIN] Stat Lab 07/25/17 20:54 Uncollected Sodium Chloride 0.9% [Normal Saline] 1,000 ml Med 07/25/17 21:00 Active IV STAT Medication Orders Sodium Chloride (Normal Saline) 1,000 mls @ 125 mls/hr IV STAT JALEESA Last Admin: 07/25/17 21:33 Dose: 125 mls/hr Labs: Laboratory Tests 07/25/17 07/25/17 07/25/17 Range/Units 21:12 21:12 21:12 WBC 8.95 (4.0-11.0) K/uL RBC 4.21 L (4.50-5.90) M/uL Hgb 14.6 (13.0-17.0) g/dL Hct 39.9 (38.0-50.0) % MCV 94.8 (80.0-98.0) fL MCH 34.7 H (27.0-32.0) pg MCHC 36.6 (31.0-37.0) g/dL RDW Std Deviation 44.1 (28.0-62.0) fl RDW Coeff of Michel 13 (11.0-15.0) % Plt Count 182 (150-400) K/uL MPV 9.20 (7.40-12.00) fL Add Manual Diff YES Neutrophils % (Manual) 46 L (48.0-80.0) % Lymphocytes % (Manual) 42 H (16.0-40.0) % Monocytes % (Manual) 8 (0.0-15.0) % Basophils % (Manual) 4 H (0.0-1.5) % Nucleated RBC % 0.0 /100WBC Absolute Seg Neuts 4.1 (1.4-5.7) Lymphocytes # (Manual) 3.8 H (0.6-2.4) Monocytes # (Manual) 0.7 (0.0-0.8) Basophils # (Manual) 0.4 H (0.0-0.1) Nucleated RBCs # 0 K/uL Sodium 139 (136-146) mmol/L Potassium 3.7 (3.5-5.1) mmol/L Chloride 101 (98-110) mmol/L Carbon Dioxide 25 (21-31) mmol/L BUN 18 (6.0-23.0) mg/dL Creatinine 1.4 (0.6-1.5) mg/dL Est Cr Clr Drug Dosing TNP Estimated GFR (MDRD) 51.5 ml/min Glucose 75 (60-110) mg/dL Calcium 10.4 (8.8-10.8) mg/dL Total Bilirubin 2.3 H (0.1-1.5) mg/dL AST 71 H (5-40) IU/L ALT 40 (8-54) IU/L Alkaline Phosphatase 85 (40-150) Ammonia 97 H (14-68) UG/DL Total Protein 7.6 (6.0-8.0) g/dL Albumin 4.1 (3.4-4.8) g/dL Globulin 3.5 (2.0-3.5) g/dL Albumin/Globulin Ratio 1.2 L (1.3-2.8) Meds: Medications Generic Name Dose Route Start Last Admin Trade Name Freq PRN Reason Stop Dose Admin Sodium Chloride 1,000 mls @ 125 mls/hr 07/25/17 21:00 07/25/17 21:33 Normal Saline IV 125 mls/hr STAT JALEESA Administration Departure - Departure Time of Disposition: 22:12 Disposition: Admitted As Inpatient 67 Condition: Fair Clinical Impression: Cirrhosis and chronic liver disease - Discharge Information Referrals: Jaylon Coates MD [Primary Care Provider] - Forms: ED Department Discharge - My Orders Last 24 Hours: My Active Orders 07/25/17 20:54 EKG Documentation Completion [RC] STAT Chest 1V Frontal [CR] Stat UA W/MICROSCOPIC [URIN] Stat 07/25/17 21:00 Sodium Chloride 0.9% [Normal Saline] 1,000 ml IV STAT 07/25/17 21:05 DRUG SCREEN, URINE [URCHEM] Stat 07/25/17 21:12 CKMB [CHEM] Stat COMPREHENSIVE METABOLIC PN,CMP [CHEM] Stat CREATINE KINASE,CK [CHEM] Stat TROPONIN I [CHEM] Stat - Assessment/Plan Last 24 Hours: My Active Orders 07/25/17 20:54 EKG Documentation Completion [RC] STAT Chest 1V Frontal [CR] Stat UA W/MICROSCOPIC [URIN] Stat 07/25/17 21:00 Sodium Chloride 0.9% [Normal Saline] 1,000 ml IV STAT 07/25/17 21:05 DRUG SCREEN, URINE [URCHEM] Stat 07/25/17 21:12 CKMB [CHEM] Stat COMPREHENSIVE METABOLIC PN,CMP [CHEM] Stat CREATINE KINASE,CK [CHEM] Stat TROPONIN I [CHEM] Stat
[2017-07-25] MEDS ORDERED: Sodium Chloride 0.9% 1,000 ML IV SCH (21:00)
[2017-07-25 21:51] LABS: CHLORIDE,CL 101 mmol/L (98-110); SODIUM,NA 139 mmol/L (136-146)
[2017-07-25] MEDS ORDERED: Ziprasidone Mesylate 20 MG in Water For Injection, Sterile 1.2 ML IM ONE (22:55)
[2017-07-25] MEDS ORDERED: Ziprasidone Mesylate 20 MG Vial IM ONE (23:00)
[2017-07-25] MEDS ORDERED: Water For Injection, Sterile 20 ML ONE (23:25)
[2017-07-25] MEDS ORDERED: fentaNYL 100 MCG/2 ML SDV ONE (23:52)
[2017-07-25] MEDS ORDERED: Midazolam 1 MG/ML 2 ML SDV ONE (23:52)
[2017-07-25] MEDS ORDERED: Propofol 200 MG/20 ML SDV ONE (23:53)
--- NOTE | 2017-07-26 00:28 | PCM.SN ---
- Free Text/Narrative Note: Anesthesia Note: Called for intubation d/t pt being combative and need for transfer. Unable to obtain information from the patient directly - 2 police officers with pt at bedside. Pt agrees to lay down and IV started per nursing staff. 4 mg IV Versed immediately given. Pt preoxygenated with bag valve mask - no upper teeth noted - no dentures ever seen. 0001: BP: 120/74, SR with few PACs R: 91, Sat: 94 0002: 100 mcg Fentanyl, 300 mg Propofol, 50 mg Rocuronium. DL x1 Grade I. 8.0 ETT placed atraumatically. + etCO2, +BBS, Dentition unchanged. Secured at 23 cm @ the lip. 0006: BP 95/61, HR: 93, Sat 100%. X-ray here to verify placement. Flight team at bedside preparing propofol gtt. Care turned over to flight team. Pt stable at this time.
[2017-07-26] MEDS ORDERED: Propofol 200 MG/20 ML SDV IVPUSH ONE (06:46)
[2017-07-26] MEDS ORDERED: Rocuronium 50 MG/5 ML Vial IVPUSH ONE (06:46)
[2017-07-26] MEDS ORDERED: fentaNYL 100 MCG/2 ML SDV IVPUSH PRN (06:47)
[2017-07-26] MEDS ORDERED: Midazolam 1 MG/ML 2 ML SDV IVPUSH ONE (06:49)
--- NOTE | 2017-07-26 10:39 | CR ---
EXAM DATE: 07/25/17 PATIENT'S AGE: 62 Patient: KESHAWN HEARN Facility: [place], [place] Site . Site : 1955 Study: XRay Chest [id number]/2/2018 10:15:14 PM Ordering Physician: Luisito Koenig Final Report: INDICATION: Altered mental status. Chest pain. TECHNIQUE: Chest radiograph 1 view COMPARISON: 01/17/2017. FINDINGS: Cardiovascular and mediastinum: The heart silhouette is normal in size and morphology. The mediastinum is normal in appearance. Lungs and pleural spaces: Both lungs are unremarkable in appearance. No sign of pleural effusion seen. No pneumothorax is identified. Bones and soft tissues: No significant findings. Old distal left clavicle fracture deformity. IMPRESSION: 1. No acute cardiopulmonary disease is seen. Dictated by Alvin Ramirez MD @ 07/25/2017 10:25:22 PM Dictated by: Alvin Ramirez MD @ 07/25/2017 22:25:27 (Electronic Signature) Report Signed by Proxy. [facility]
--- NOTE | 2017-07-26 11:13 | CR ---
EXAM DATE: 07/25/17 PATIENT'S AGE: 62 Patient: KESHAWN HEARN Facility: [place], [place] Site . Site : 1955 Study: XRay Chest [id number]/3/2018 12:16:05 AM Ordering Physician: Luisito Koenig Final Report: INDICATIONS: Post intubation. TECHNIQUE: Chest 1 portable AP view. COMPARISON: Chest radiograph 07/25/2017. FINDINGS: Endotracheal tube terminates approximately 2 cm above the dayana. No pneumothorax, pleural effusion or airspace consolidation. Cardiac and mediastinal contours are stable. No additional significant change. IMPRESSION: Endotracheal tube terminates approximately 2 cm above the dayana. Dictated by Richi Orosco MD @ 07/26/2017 12:28:41 AM Dictated by: Richi Orosco MD @ 07/26/2017 00:28:53 (Electronic Signature) Report Signed by Proxy. MTDTiana
[2017-07-31] MEDS ORDERED: Sodium Chloride 0.9% 1,000 ML IV ONE (05:31)
== END 2017-07-26 00:34 ==
LOC: MW.ED 20:41
DX: K74.60 Unspecified cirrhosis of liver (principal); M62.82 Rhabdomyolysis; I10 Essential (primary) hypertension; Z91.19 Patient's noncompliance with other medical treatment and regimen; Z88.5 Allergy status to narcotic agent; Z88.8 Allergy status to other drugs, medicaments and biological substances; Z79.899 Other long term (current) drug therapy; Z87.891 Personal history of nicotine dependence
CPT/HCPCS: 71045; 80053; 80305; 81001; 82140; 82550; 82553; 84484; 85025; 93005; 96360; 96361; 96372; 99285; J3486; J7040; 99284

== ENCOUNTER 2018-03-27 16:32 | Emergency (ER) | payer MEDICAID, OTHER ==
[2018-03-27] MEDS ORDERED: Sodium Chloride 0.9% 1,000 ML IV ONE (16:43)
[2018-03-27 17:14] VITALS: BP 137/86
[2018-03-27 17:45] LABS: CHLORIDE,CL 106 mmol/L (98-107); SODIUM,NA 138 mmol/L (136-148)
--- NOTE | 2018-03-27 18:10 | EDM.PDOC ---
ED HPI GENERAL MEDICAL PROBLEM - General Chief Complaint: Syncope Stated Complaint: PT DIZZY Time Seen by Provider: 03/27/18 18:08 Source of Information: Reports: Patient - History of Present Illness INITIAL COMMENTS - FREE TEXT/NARRATIVE: HISTORY AND PHYSICAL: History of present illness: []Patient presents with dizziness with ambulation better at rest not associated with head position no fever nausea vomiting chills sweats no chest pain shortness breath headache palpitation bowel or urine symptoms Review of systems: As per history of present illness and below otherwise all systems reviewed and negative. Past medical history: As per history of present illness and as reviewed below otherwise noncontributory. Surgical history: As per history of present illness and as reviewed below otherwise noncontributory. Social history: No reported history of drug or alcohol abuse. Family history: As per history of present illness and as reviewed below otherwise noncontributory. Physical exam: HEENT: Atraumatic, normocephalic, pupils reactive, negative for conjunctival pallor or scleral icterus, mucous membranes moist, throat clear, neck supple, nontender, trachea midline. Tenderness over right sphenoid sinus Lungs: Clear to auscultation, breath sounds equal bilaterally, chest nontender. Heart: S1S2, regular, negative for clicks, rubs, or JVD. Abdomen: Soft, nondistended, nontender. Negative for masses or hepatosplenomegaly. Negative for costovertebral tenderness. Pelvis: Stable nontender. Genitourinary: Deferred. Rectal: Deferred. Extremities: Atraumatic, negative for cords or calf pain. Neurovascular unremarkable. Neuro: Awake, alert, oriented. Cranial nerves II through XII unremarkable. Cerebellum unremarkable. Motor and sensory unremarkable throughout. Exam nonfocal. Diagnostics: [CBC CMP UA troponin ]EKG Chest [address] no contrast Therapeutics: [Liter normal saline bolus] Augmentin 875 per 125 by mouth twice a day #20 no refill Impression: [ right sphenoid sinusitis ] Definitive disposition and diagnosis as appropriate pending reevaluation and review of above. - Related Data Allergies Allergy/AdvReac Type Severity Reaction Status Date / Time codeine Allergy Hives Verified 02/25/18 21:05 morphine Allergy Hallucinati Verified 02/25/18 21:05 ons zolpidem [From Ambien] AdvReac Acid Reflux Verified 02/25/18 21:05 Home Meds: Home Meds Propranolol [Inderal] 10 mg PO BID 10/19/14 [History] Rifaximin [Xifaxan] 550 mg PO BID 10/20/14 [History] Cyclobenzaprine [Flexeril] 10 mg PO DAILY 04/30/16 [History] Past Medical History HEENT History: Reports: Impaired Vision Other HEENT History: wears glasses Cardiovascular History: Reports: Afib, Arrhythmia, Hypertension Other Cardiovascular History: A Fib Respiratory History: Reports: None Gastrointestinal History: Reports: Bowel Obstruction, Cirrhosis Genitourinary History: Reports: None Musculoskeletal History: Reports: None Neurological History: Reports: None Psychiatric History: Reports: Addiction Other Psychiatric History: History of ETOH Endocrine/Metabolic History: Reports: None Other Endocrine/Metabolic History: Hepatic Encephalopathy Hematologic History: Reports: None Immunologic History: Reports: None Oncologic (Cancer) History: Reports: None Dermatologic History: Reports: None - Infectious Disease History Infectious Disease History: Reports: None - Past Surgical History Head Surgeries/Procedures: Reports: None HEENT Surgical History: Reports: Tonsillectomy Cardiovascular Surgical History: Reports: None GI Surgical History: Reports: Cholecystectomy, Hernia, Abdominal, Hernia, Inguinal Other GI Surgeries/Procedures: liver shunt; hernia surgery 01/09/2017 Musculoskeletal Surgical History: Reports: None Social & Family History - Family History Family Medical History: Noncontributory - Tobacco Use Smoking Status *Q: Never Smoker Second Hand Smoke Exposure: No - Caffeine Use Caffeine Use: Reports: None Caffeine Use Comment: 1drink/day - Recreational Drug Use Recreational Drug Use: No ED ROS GENERAL - Review of Systems Review Of Systems: See Below ED EXAM, GENERAL - Physical Exam Exam: See Below Course - Vital Signs Last Recorded V/S: Last Vital Signs Temp 97.5 F 03/27/18 16:56 Pulse 74 03/27/18 17:13 Resp 11 L 03/27/18 17:13 BP 137/86 03/27/18 17:13 Pulse Ox 98 03/27/18 17:13 Orthostatic Blood Pressure [ 143/88 Standing] Orthostatic Blood Pressure [ 137/95 Sitting] Orthostatic Blood Pressure [ 143/78 Supine] - Orders/Labs/Meds Orders: Active Orders 24 hr Category Date Time Status EKG Documentation Completion [RC] STAT Care 03/27/18 16:43 Active Orthostatic Vital Signs [RC] ASDIRECTED Care 03/27/18 17:16 Active Chest 1V Frontal [CR] Stat Exams 03/27/18 16:43 Taken Head wo Cont [CT] Stat Exams 03/27/18 16:43 Taken UA W/MICROSCOPIC [URIN] Stat Lab 03/27/18 17:03 Ordered Labs: Laboratory Tests 03/27/18 03/27/18 03/27/18 Range/Units 17:03 17:03 17:03 WBC 4.62 (4.0-11.0) K/uL RBC 4.29 L (4.50-5.90) M/uL Hgb 14.8 (13.0-17.0) g/dL Hct 40.9 (38.0-50.0) % MCV 95.3 (80.0-98.0) fL MCH 34.5 H (27.0-32.0) pg MCHC 36.2 (31.0-37.0) g/dL RDW Std Deviation 45.9 (28.0-62.0) fl RDW Coeff of Michel 13 (11.0-15.0) % Plt Count 173 (150-400) K/uL MPV 9.70 (7.40-12.00) fL Neut % (Auto) 56.8 (48.0-80.0) % Lymph % (Auto) 32.9 (16.0-40.0) % Trego % (Auto) 8.2 (0.0-15.0) % Eos % (Auto) 1.5 (0.0-7.0) % Baso % (Auto) 0.6 (0.0-1.5) % Neut # (Auto) 2.6 (1.4-5.7) K/uL Lymph # (Auto) 1.5 (0.6-2.4) K/uL Trego # (Auto) 0.4 (0.0-0.8) K/uL Eos # (Auto) 0.1 (0.0-0.7) K/uL Baso # (Auto) 0.0 (0.0-0.1) K/uL Nucleated RBC % 0.0 /100WBC Nucleated RBCs # 0 K/uL Sodium 138 (136-148) mmol/L Potassium 4.1 (3.5-5.1) mmol/L Chloride 106 (98-107) mmol/L Carbon Dioxide 23.3 (21.0-32.0) mmol/L BUN 10 (7.0-18.0) mg/dL Creatinine 1.0 (0.8-1.3) mg/dL Est Cr Clr Drug Dosing 89.05 mL/min Estimated GFR (MDRD) > 60.0 ml/min Glucose 85 (74-106) mg/dL Calcium 8.7 (8.5-10.1) mg/dL Total Bilirubin 1.6 H (0.2-1.0) mg/dL AST 43 H (15-37) IU/L ALT 30 (14-63) IU/L Alkaline Phosphatase 109 (46-116) U/L Troponin I < 0.050 (0.000-0.056) ng/mL Total Protein 7.2 (6.4-8.2) g/dL Albumin 3.6 (3.4-5.0) g/dL Globulin 3.6 H (2.0-3.5) g/dL Albumin/Globulin Ratio 1.0 L (1.3-2.8) Urine Color YELLOW Urine Appearance CLEAR Urine pH 5.5 (5.0-8.0) Ur Specific Bonnie >= 1.030 (1.001-1.035) Urine Protein NEGATIVE (NEGATIVE) mg/dL Urine Glucose (UA) NEGATIVE (NEGATIVE) mg/dL Urine Ketones TRACE H (NEGATIVE) mg/dL Urine Occult Blood NEGATIVE (NEGATIVE) Urine Nitrite NEGATIVE (NEGATIVE) Urine Bilirubin SMALL H (NEGATIVE) Urine Ictotest NEGATIVE Urine Urobilinogen 1.0 (<2.0) EU/dL Ur Leukocyte Esterase NEGATIVE (NEGATIVE) Urine RBC 0-2 (0-2/HPF) Urine WBC 1-3 (0-5/HPF) Ur Epithelial Cells MODERATE (NONE-FEW) Urine Bacteria FEW (NEGATIVE) Urine Mucus LIGHT (NONE-MOD) Ethyl Alcohol mg/dL 03/27/18 Range/Units 17:03 WBC (4.0-11.0) K/uL RBC (4.50-5.90) M/uL Hgb (13.0-17.0) g/dL Hct (38.0-50.0) % MCV (80.0-98.0) fL MCH (27.0-32.0) pg MCHC (31.0-37.0) g/dL RDW Std Deviation (28.0-62.0) fl RDW Coeff of Michel (11.0-15.0) % Plt Count (150-400) K/uL MPV (7.40-12.00) fL Neut % (Auto) (48.0-80.0) % Lymph % (Auto) (16.0-40.0) % Trego % (Auto) (0.0-15.0) % Eos % (Auto) (0.0-7.0) % Baso % (Auto) (0.0-1.5) % Neut # (Auto) (1.4-5.7) K/uL Lymph # (Auto) (0.6-2.4) K/uL Trego # (Auto) (0.0-0.8) K/uL Eos # (Auto) (0.0-0.7) K/uL Baso # (Auto) (0.0-0.1) K/uL Nucleated RBC % /100WBC Nucleated RBCs # K/uL Sodium (136-148) mmol/L Potassium (3.5-5.1) mmol/L Chloride (98-107) mmol/L Carbon Dioxide (21.0-32.0) mmol/L BUN (7.0-18.0) mg/dL Creatinine (0.8-1.3) mg/dL Est Cr Clr Drug Dosing mL/min Estimated GFR (MDRD) ml/min Glucose (74-106) mg/dL Calcium (8.5-10.1) mg/dL Total Bilirubin (0.2-1.0) mg/dL AST (15-37) IU/L ALT (14-63) IU/L Alkaline Phosphatase (46-116) U/L Troponin I (0.000-0.056) ng/mL Total Protein (6.4-8.2) g/dL Albumin (3.4-5.0) g/dL Globulin (2.0-3.5) g/dL Albumin/Globulin Ratio (1.3-2.8) Urine Color Urine Appearance Urine pH (5.0-8.0) Ur Specific Bonnie (1.001-1.035) Urine Protein (NEGATIVE) mg/dL Urine Glucose (UA) (NEGATIVE) mg/dL Urine Ketones (NEGATIVE) mg/dL Urine Occult Blood (NEGATIVE) Urine Nitrite (NEGATIVE) Urine Bilirubin (NEGATIVE) Urine Ictotest Urine Urobilinogen (<2.0) EU/dL Ur Leukocyte Esterase (NEGATIVE) Urine RBC (0-2/HPF) Urine WBC (0-5/HPF) Ur Epithelial Cells (NONE-FEW) Urine Bacteria (NEGATIVE) Urine Mucus (NONE-MOD) Ethyl Alcohol <3 mg/dL Meds: Medications Discontinued Medications Generic Name Dose Route Start Last Admin Trade Name Caro PRN Reason Stop Dose Admin Sodium Chloride 1,000 mls @ 999 mls/hr 03/27/18 16:43 03/27/18 17:10 Normal Saline IV 03/27/18 17:43 999 mls/hr STAT ONE Administration Departure - Departure Time of Disposition: 18:09 Disposition: Home, Self-Care 01 Condition: Good Clinical Impression: Sinusitis - Discharge Information Referrals: PCP,None [Primary Care Provider] - Additional Instructions: The following information is given to patients seen in the emergency department who are being discharged to home. This information is to outline your options for follow-up care. We provide all patients seen in our emergency department with a follow-up referral. The need for follow-up, as well as the timing and circumstances, are variable depending upon the specifics of your emergency department visit. If you don't have a primary care physician on staff, we will provide you with a referral. We always advise you to contact your personal physician following an emergency department visit to inform them of the circumstance of the visit and for follow-up with them and/or the need for any referrals to a consulting specialist. The emergency department will also refer you to a specialist when appropriate. This referral assures that you have the opportunity for follow-up care with a specialist. All of these measure are taken in an effort to provide you with optimal care, which includes your follow-up. Under all circumstances we always encourage you to contact your private physician who remains a resource for coordinating your care. When calling for follow-up care, please make the office aware that this follow-up is from your recent emergency room visit. If for any reason you are refused follow-up, please contact the [facility] emergency department at and asked to speak to the emergency department charge nurse. - My Orders Last 24 Hours: My Active Orders 03/27/18 16:43 EKG Documentation Completion [RC] STAT Chest 1V Frontal [CR] Stat Head wo Cont [CT] Stat 03/27/18 17:03 UA W/MICROSCOPIC [URIN] Stat 03/27/18 17:16 Orthostatic Vital Signs [RC] ASDIRECTED - Assessment/Plan Last 24 Hours: My Active Orders 03/27/18 16:43 EKG Documentation Completion [RC] STAT Chest 1V Frontal [CR] Stat Head wo Cont [CT] Stat 03/27/18 17:03 UA W/MICROSCOPIC [URIN] Stat 03/27/18 17:16 Orthostatic Vital Signs [RC] ASDIRECTED
--- NOTE | 2018-03-28 09:20 | CT ---
EXAM DATE: 03/27/18 PATIENT'S AGE: 63 Patient: KESHAWN HEARN Facility: [place], [place] Site . Site : 1955 Study: CT Head [id number] 5:43:25 PM Ordering Physician: Doctor Paredes Final Report: INDICATION: Syncope TECHNIQUE: Non-contrast CT of the head is submitted. No comparisons. FINDINGS: The ventricles, sulci and gyri are of normal size, shape and contour. Midline structures are centrally located. No convincing evidence of intra- or extra- axial fluid collections. There is complete opacification of the right sphenoid sinus with mild hyperdense material within the sphenoid sinus cavity that may represent chronic inspissated secretions or fungal changes. IMPRESSION: 1. No radiographic evidence of acute intracranial abnormalities. 2. Severe right sphenoid sinusitis. Dictated by Darek Schmitt MD @ 03/27/2018 5:45:41 PM Please note that all CT scans at this facility use dose modulation, iterative reconstruction, and/or weight-based dosing when appropriate to reduce radiation dose to as low as reasonably achievable. Dictated by: Darek Schmitt MD @ 03/27/2018 17:45:46 (Electronic Signature) Report Signed by Proxy. [facility]
--- NOTE | 2018-03-28 09:21 | CR ---
EXAM DATE: 03/27/18 PATIENT'S AGE: 63 Patient: KESHAWN HEARN Facility: [place], [place] Site . Site : 1955 Study: XRay Chest [id number] 5:44:18 PM Ordering Physician: Doctor Paredes Final Report: INDICATION: Syncope. CHEST, ONE VIEW An AP radiograph of the chest was performed. Comparison: 07/26/2017 The lungs appear clear and no definite pleural effusions are identified. The cardiomediastinal silhouette and pulmonary vasculature appear normal, as do the visualized bones. IMPRESSION: No acute intrathoracic abnormality identified. BETTY VALADEZ MD [employer] Dictated by: Abdias Valadez MD @ 03/27/2018 18:08:35 (Electronic Signature) Report Signed by Proxy. [facility]
== END 2018-03-27 18:26 | disposition home or self-care (01) ==
LOC: MW.ED 16:32
DX: J32.3 Chronic sphenoidal sinusitis (principal); Z88.5 Allergy status to narcotic agent; I10 Essential (primary) hypertension; Z88.8 Allergy status to other drugs, medicaments and biological substances
CPT/HCPCS: 36415; 70450; 71045; 80053; 81001; 84484; 85025; 93005; 96360; 99285; G0480; J7040

== ENCOUNTER 2018-12-14 10:52 | Emergency (ER) | payer MEDICAID ==
--- NOTE | 2018-12-14 11:13 | EDM.PDOC ---
ED HPI GENERAL MEDICAL PROBLEM - General Chief Complaint: General Stated Complaint: MED CLEAR Time Seen by Provider: 12/14/18 10:54 Source of Information: Reports: Patient - History of Present Illness INITIAL COMMENTS - FREE TEXT/NARRATIVE: HISTORY AND PHYSICAL: History of present illness: [Patient presents for medical screening exam Denies injury or trauma It appears that he went to court today and apparently had an outstanding warrant that he was unaware of and was arrested for the outstanding warrant He has no complaints such as fever nausea vomiting diarrhea constipation chest pain shortness breath headache dizziness or palpitation no bowel or urine symptoms ] patient does have a history of liver disease on medications Review of systems: As per history of present illness and below otherwise all systems reviewed and negative. Past medical history: As per history of present illness and as reviewed below otherwise noncontributory. Surgical history: As per history of present illness and as reviewed below otherwise noncontributory. Social history: No reported history of drug or alcohol abuse. Family history: As per history of present illness and as reviewed below otherwise noncontributory. Physical exam: HEENT: Atraumatic, normocephalic, pupils reactive, negative for conjunctival pallor or scleral icterus, mucous membranes moist, throat clear, neck supple, nontender, trachea midline. Lungs: Clear to auscultation, breath sounds equal bilaterally, chest nontender. Heart: S1S2, regular, negative for clicks, rubs, or JVD. Abdomen: Soft, nondistended, nontender. Negative for masses or hepatosplenomegaly. Negative for costovertebral tenderness. Pelvis: Stable nontender. Genitourinary: Deferred. Rectal: Deferred. Extremities: Atraumatic, negative for cords or calf pain. Neurovascular unremarkable. Neuro: Awake, alert, oriented. Cranial nerves II through XII unremarkable. Cerebellum unremarkable. Motor and sensory unremarkable throughout. Exam nonfocal. Diagnostics: [None ] Therapeutics: [Prescription for home medications provided ] Impression: medical screening exam] Definitive disposition and diagnosis as appropriate pending reevaluation and review of above. Back Pain Score (Numeric/FACES): 10 - Related Data Allergies Allergy/AdvReac Type Severity Reaction Status Date / Time codeine Allergy Hives Verified 12/14/18 11:13 morphine Allergy Hallucinati Verified 12/14/18 11:13 ons zolpidem [From Ambien] AdvReac Acid Reflux Verified 12/14/18 11:13 Home Meds: Home Meds Propranolol [Inderal] 10 mg PO BID 10/19/14 [History] Rifaximin [Xifaxan] 550 mg PO BID 10/20/14 [History] Celecoxib [CeleBREX] 2 cap PO DAILY 12/14/18 [History] Furosemide 1 tab PO DAILY 12/14/18 [History] Pantoprazole [ProTONIX] 1 cap PO DAILY 12/14/18 [History] Spironolactone [Aldactone] 2 tab PO DAILY 12/14/18 [History] dilTIAZem HCl [Diltiazem ER] 1 cap PO DAILY 12/14/18 [History] Past Medical History HEENT History: Reports: Impaired Vision Other HEENT History: wears glasses Cardiovascular History: Reports: Afib, Arrhythmia, Hypertension Other Cardiovascular History: A Fib Respiratory History: Reports: None Gastrointestinal History: Reports: Bowel Obstruction, Cirrhosis Genitourinary History: Reports: None Musculoskeletal History: Reports: None Neurological History: Reports: None Psychiatric History: Reports: Addiction Other Psychiatric History: History of ETOH Endocrine/Metabolic History: Reports: None Other Endocrine/Metabolic History: Hepatic Encephalopathy Hematologic History: Reports: None Immunologic History: Reports: None Oncologic (Cancer) History: Reports: None Dermatologic History: Reports: None - Infectious Disease History Infectious Disease History: Reports: None - Past Surgical History Head Surgeries/Procedures: Reports: None HEENT Surgical History: Reports: Tonsillectomy Cardiovascular Surgical History: Reports: None GI Surgical History: Reports: Cholecystectomy, Hernia, Abdominal, Hernia, Inguinal Other GI Surgeries/Procedures: liver shunt; hernia surgery 01/09/2017 Musculoskeletal Surgical History: Reports: None Social & Family History - Family History Family Medical History: Noncontributory - Caffeine Use Caffeine Use: Reports: None Caffeine Use Comment: 1drink/day ED ROS GENERAL - Review of Systems Review Of Systems: See Below ED EXAM, GENERAL - Physical Exam Exam: See Below Course - Vital Signs Last Recorded V/S: Last Vital Signs Temp 97.5 F 12/14/18 11:20 Pulse 90 12/14/18 11:20 Resp 15 12/14/18 11:20 BP 144/90 H 12/14/18 11:20 Pulse Ox 96 12/14/18 11:20 Departure - Departure Time of Disposition: 11:28 Disposition: Home, Self-Care 01 Condition: Good Clinical Impression: Encounter for medical screening examination - Discharge Information Referrals: PCP,Unknown [Primary Care Provider] - Forms: ED Department Discharge Additional Instructions: The following information is given to patients seen in the emergency department who are being discharged to home. This information is to outline your options for follow-up care. We provide all patients seen in our emergency department with a follow-up referral. The need for follow-up, as well as the timing and circumstances, are variable depending upon the specifics of your emergency department visit. If you don't have a primary care physician on staff, we will provide you with a referral. We always advise you to contact your personal physician following an emergency department visit to inform them of the circumstance of the visit and for follow-up with them and/or the need for any referrals to a consulting specialist. The emergency department will also refer you to a specialist when appropriate. This referral assures that you have the opportunity for follow-up care with a specialist. All of these measure are taken in an effort to provide you with optimal care, which includes your follow-up. Under all circumstances we always encourage you to contact your private physician who remains a resource for coordinating your care. When calling for follow-up care, please make the office aware that this follow-up is from your recent emergency room visit. If for any reason you are refused follow-up, please contact the [facility] emergency department at and asked to speak to the emergency department charge nurse.
[2018-12-14 11:26] VITALS: BP 144/90
== END 2018-12-14 11:44 | disposition home or self-care (01) ==
LOC: MW.ED 10:52
DX: Z02.89 Encounter for other administrative examinations (principal); I10 Essential (primary) hypertension; I48.91 Unspecified atrial fibrillation; Z88.5 Allergy status to narcotic agent; Z88.8 Allergy status to other drugs, medicaments and biological substances; Z79.899 Other long term (current) drug therapy; Z90.49 Acquired absence of other specified parts of digestive tract; Z98.890 Other specified postprocedural states
CPT/HCPCS: 99282

== ENCOUNTER 2019-07-17 20:53 | Emergency (ER) | payer MEDICAID ==
[2019-07-17 21:13] VITALS: BP 138/86; PULSE 87
[2019-07-17] MEDS ORDERED: Tetracaine HCl/PF 0.5% 4 ML Bottle EYEBOTH ONE (21:13)
--- NOTE | 2019-07-17 21:33 | EDM.PDOC ---
ED HPI GENERAL MEDICAL PROBLEM - General Chief Complaint: Eye Problems Stated Complaint: EYE INJURY Time Seen by Provider: 07/17/19 21:30 Source of Information: Reports: Patient History Limitations: Reports: No Limitations - History of Present Illness INITIAL COMMENTS - FREE TEXT/NARRATIVE: HISTORY AND PHYSICAL: History of present illness: Patient is a 64-year-old male presents to the ED with complaint of something in eyes. He states he was shaving his mustache today and got a couple of pieces of hair in his right eye. He states his son got a couple of small pieces of hair out but he feels like there is something in his eye still. Review of systems: As per history of present illness and below otherwise all systems reviewed and negative. Past medical history: As per history of present illness and as reviewed below otherwise noncontributory. Surgical history: As per history of present illness and as reviewed below otherwise noncontributory. Social history: No reported history of drug or alcohol abuse. Family history: As per history of present illness and as reviewed below otherwise noncontributory. Physical exam: General: Patient sitting comfortably in no acute distress and nontoxic appearing HEENT: No injection or drainage. There is increased uptake to the right lateral cornea on woodslamp examination. No FB on lid eversion. Atraumatic, normocephalic, pupils reactive, negative for conjunctival pallor or scleral icterus, mucous membranes moist, throat clear, neck supple, nontender, trachea midline. No meningeal signs. Lungs: Clear to auscultation, breath sounds equal bilaterally, chest nontender. Heart: S1S2, regular, negative for clicks, rubs, or overt murmur. Abdomen: Soft, nondistended, nontender. Negative for masses or hepatosplenomegaly. Negative for costovertebral tenderness. No rigidity, rebound , guarding. Pelvis: Stable nontender. Genitourinary: Deferred. Rectal: Deferred. Extremities: Atraumatic, negative for cords or calf pain. Neurovascular unremarkable. Neuro: Awake, alert, oriented. Cranial nerves II through XII unremarkable. Cerebellum unremarkable. Motor and sensory unremarkable throughout. Exam nonfocal. Notes: Diagnostics: Woodslamps exam with fluorescein stain Therapeutics: [] Prescriptions: Cipro ophthalmic Impression: Right corneal abrasion Definitive disposition and diagnosis as appropriate pending reevaluation and review of above. Right Eye Pain Score (Numeric/FACES): 1 - Related Data Allergies Allergy/AdvReac Type Severity Reaction Status Date / Time codeine Allergy Hives Verified 07/17/19 21:13 morphine Allergy Hallucinati Verified 07/17/19 21:13 ons zolpidem [From Ambien] AdvReac Acid Reflux Verified 07/17/19 21:13 Home Meds: Home Meds Propranolol [Inderal] 10 mg PO BID 10/19/14 [History] Rifaximin [Xifaxan] 550 mg PO BID 10/20/14 [History] Spironolactone [Aldactone] 2 tab PO DAILY 12/14/18 [History] Ciprofloxacin [Ciprofloxacin 0.3% Ophth Soln] 1 drop OP Q2H #1 bottle 07/17/19 [ Rx] Furosemide [Lasix] 20 mg PO DAILY 07/17/19 [History] Past Medical History HEENT History: Reports: Impaired Vision Other HEENT History: wears glasses Cardiovascular History: Reports: Afib, Arrhythmia, Hypertension Other Cardiovascular History: A Fib Respiratory History: Reports: None Gastrointestinal History: Reports: Bowel Obstruction, Cirrhosis Genitourinary History: Reports: None Musculoskeletal History: Reports: None Neurological History: Reports: None Psychiatric History: Reports: Addiction Other Psychiatric History: History of ETOH Endocrine/Metabolic History: Reports: None Other Endocrine/Metabolic History: Hepatic Encephalopathy Hematologic History: Reports: None Immunologic History: Reports: None Oncologic (Cancer) History: Reports: None Dermatologic History: Reports: None - Infectious Disease History Infectious Disease History: Reports: None - Past Surgical History Head Surgeries/Procedures: Reports: None HEENT Surgical History: Reports: Tonsillectomy Cardiovascular Surgical History: Reports: None GI Surgical History: Reports: Cholecystectomy, Hernia, Abdominal, Hernia, Inguinal Other GI Surgeries/Procedures: liver shunt; hernia surgery 01/09/2017 Musculoskeletal Surgical History: Reports: None Social & Family History - Family History Family Medical History: Noncontributory - Tobacco Use Smoking Status *Q: Never Smoker - Caffeine Use Caffeine Use: Reports: None Caffeine Use Comment: 1drink/day - Recreational Drug Use Recreational Drug Use: No ED ROS GENERAL - Review of Systems Review Of Systems: Comprehensive ROS is negative, except as noted in HPI. ED EXAM GENERAL W FULL EYE - Physical Exam Exam: See Below (see dictation) Course - Vital Signs Last Recorded V/S: Last Vital Signs Temp 97.9 F 07/17/19 21:09 Pulse 87 07/17/19 21:09 Resp 16 07/17/19 21:09 BP 138/86 07/17/19 21:09 Pulse Ox 83 L 07/17/19 21:09 - Orders/Labs/Meds Meds: Medications Discontinued Medications Generic Name Dose Route Start Last Admin Trade Name Freq PRN Reason Stop Dose Admin Tetracaine HCl 1 ml 07/17/19 21:13 Tetracaine 0.5% Steri-Unit Szuanne EYEBOTH 07/17/19 21:14 ASDIRECTED ONE Departure - Departure Time of Disposition: 21:30 Disposition: Home, Self-Care 01 Condition: Good Clinical Impression: Right corneal abrasion - Discharge Information Prescriptions: Ciprofloxacin [Ciprofloxacin 0.3% Ophth Soln] 1 drop OP Q2H #1 bottle Referrals: Sean Feliz MD [Primary Care Provider] - Forms: ED Department Discharge Additional Instructions: The following information is given to patients seen in the emergency department who are being discharged to home. This information is to outline your options for follow-up care. We provide all patients seen in our emergency department with a follow-up referral. The need for follow-up, as well as the timing and circumstances, are variable depending upon the specifics of your emergency department visit. If you don't have a primary care physician on staff, we will provide you with a referral. We always advise you to contact your personal physician following an emergency department visit to inform them of the circumstance of the visit and for follow-up with them and/or the need for any referrals to a consulting specialist. The emergency department will also refer you to a specialist when appropriate. This referral assures that you have the opportunity for follow-up care with a specialist. All of these measure are taken in an effort to provide you with optimal care, which includes your follow-up. Under all circumstances we always encourage you to contact your private physician who remains a resource for coordinating your care. When calling for follow-up care, please make the office aware that this follow-up is from your recent emergency room visit. If for any reason you are refused follow-up, please contact the [facility] Emergency Department at and asked to speak to the emergency department charge nurse. [facility] [address] [place] [address] [facility] [address] [place] [address] Use drop as instructed Follow up with operating room manager Return to ED as needed as discussed Sepsis Event Note - Evaluation Sepsis Screening Result: No Definite Risk - Focused Exam Vital Signs: Vital Signs Temp Pulse Resp BP Pulse Ox 07/17/19 21:09 97.9 F 87 16 138/86 83 L Date Exam was Performed: 07/17/19 Time Exam was Performed: 21:33
== END 2019-07-17 21:41 | disposition home or self-care (01) ==
LOC: MW.ED 20:53
DX: S05.01XA Injury of conjunctiva and corneal abrasion without foreign body, right eye, initial encounter (principal); I10 Essential (primary) hypertension; I48.91 Unspecified atrial fibrillation; Z90.49 Acquired absence of other specified parts of digestive tract; Z98.890 Other specified postprocedural states; Z88.5 Allergy status to narcotic agent; Z88.8 Allergy status to other drugs, medicaments and biological substances; Z79.899 Other long term (current) drug therapy; X58.XXXA Exposure to other specified factors, initial encounter
CPT/HCPCS: 99283

== ENCOUNTER 2020-12-23 11:55 | Emergency (ER) | payer MEDICAID ==
[2020-12-23] MEDS ORDERED: Sodium Chloride 0.9% 10 ML Syringe FLUSH PRN (12:24)
[2020-12-23] MEDS ORDERED: Sodium Chloride 0.9% 2.5 ML Syringe FLUSH PRN (12:24)
--- NOTE | 2020-12-23 12:28 | EDM.PDOC ---
ED HPI GENERAL MEDICAL PROBLEM - General Chief Complaint: Lower Extremity Injury/Pain Stated Complaint: POSS BLOOD CLOTS Time Seen by Provider: 12/23/20 11:57 - History of Present Illness INITIAL COMMENTS - FREE TEXT/NARRATIVE: History of present illness: [] This patient came because his legs are swollen and red. The swelling to the point of discomfort. They are reddened. They have been swollen for several days. He stopped drinking yesterday after 5-month episode of drinking heavily. He had been sober for 4 years before that. He has a history of cirrhosis of the liver and used to get regular paracentesis but that it been better since he had been sober for a while. He does not have any significant abdominal pain or complained about the swelling there being worse than usual. Review of systems: As per history of present illness and below otherwise all systems reviewed and negative. Past medical history: As per history of present illness and as reviewed below otherwise noncontributory. Surgical history: As per history of present illness and as reviewed below otherwise noncontributory. Social history: No reported history of drug or alcohol abuse. Family history: As per history of present illness and as reviewed below otherwise noncontributory. Physical exam: Constitutional - well developed, well-nourished and in no acute distress HEENT - normocephalic, no evidence of trauma - external nose and mouth normal - no mass in neck and no JVD - mucosae moist EYES - full EOM, PERRL, no icterus - no evidence of inflammation, injection, or drainage Respiratory - no respiratory distress, equal bilateral expansion, lungs clear to auscultation and no abnormal lung sounds Cardiovascular - Regular Rhythm with S1 and S2 appreciated and no murmur, gallop or rub. GI - abdomen soft stented with enlarged liver below the right costal margin.- normal bowel sounds - no guard or rebound Musculoskeletal no gross deformity of long bones or joints -slight tenderness in large amount of swelling in the legs below the knee. Its pitting edema. There is erythema. His skin is warm but is quite fruit thinner the upper extremities as well and not more warm on one side of the lower extremities or more fruit thinner the lower than upper extremities. Neurologic - Alert and oriented times four - CN II-XII grossly intact - motor sensory and coordination symmetrically normal Psychiatric - appropriate mood and affect with normal thought content Hematologic - No petechiae or purpura - mucosa appropriate color and sclera not pale - normal nail bed color and refill Integument - no rash or evidence of trauma - normal turgor Diagnostics: [] Therapeutics: [] Impression: [] Plan: [] Definitive disposition and diagnosis as appropriate pending reevaluation and review of above. Bilateral legs Pain Score (Numeric/FACES): 6 - Related Data Allergies Allergy/AdvReac Type Severity Reaction Status Date / Time codeine Allergy Nausea and Verified 12/23/20 12:09 Vomiting morphine Allergy Hallucinati Verified 12/23/20 12:09 ons zolpidem [From Ambien] AdvReac Nausea and Verified 12/23/20 12:09 Vomiting Home Meds: Home Meds Propranolol [Inderal] 10 mg PO BID 10/19/14 [History] Rifaximin [Xifaxan] 550 mg PO BID 10/20/14 [History] Spironolactone [Aldactone] 2 tab PO DAILY 12/14/18 [History] Ciprofloxacin [Ciprofloxacin 0.3% Oph Soln] 1 drop OP Q2H #1 bottle 07/17/19 [Rx] Furosemide [Lasix] 20 mg PO DAILY 07/17/19 [History] Furosemide [Lasix] 20 mg PO BID #60 tab 12/23/20 [Rx] Potassium Chloride 20 meq PO DAILY #14 tab.er.prt 12/23/20 [Rx] Past Medical History HEENT History: Reports: Impaired Vision Other HEENT History: wears glasses Cardiovascular History: Reports: Afib, Arrhythmia, Hypertension Other Cardiovascular History: A Fib Respiratory History: Reports: None Gastrointestinal History: Reports: Bowel Obstruction, Cirrhosis Genitourinary History: Reports: None Musculoskeletal History: Reports: None Neurological History: Reports: None Psychiatric History: Reports: Addiction Other Psychiatric History: History of ETOH Endocrine/Metabolic History: Reports: None Other Endocrine/Metabolic History: Hepatic Encephalopathy Hematologic History: Reports: None Immunologic History: Reports: None Oncologic (Cancer) History: Reports: None Dermatologic History: Reports: None - Infectious Disease History Infectious Disease History: Reports: None - Past Surgical History Head Surgeries/Procedures: Reports: None HEENT Surgical History: Reports: Tonsillectomy Cardiovascular Surgical History: Reports: None GI Surgical History: Reports: Cholecystectomy, Hernia, Abdominal, Hernia, Inguinal Other GI Surgeries/Procedures: liver shunt; hernia surgery 01/09/2017 Musculoskeletal Surgical History: Reports: None Other Musculoskeletal Surgeries/Procedures:: knee surgery Social & Family History - Family History Family Medical History: No Pertinent Family History - Tobacco Use Tobacco Use Status *Q: Never Tobacco User - Caffeine Use Caffeine Use: Reports: None Caffeine Use Comment: 1drink/day - Recreational Drug Use Recreational Drug Use: No Review of Systems - Review of Systems Review Of Systems: Comprehensive ROS is negative, except as noted in HPI. ED EXAM, GENERAL - Physical Exam Exam: See Below Free Text/Narrative:: My physical exam is in the HPI Course - Vital Signs Text/Narrative:: 1316 p.m. patient has an ultrasound that shows no DVT in either leg. Electroly may are pending. 1335 hrs. the patient will be discharged with instructions to take potassium supplement when he doubled his Lasix for 2 weeks, elevate his legs. Last Recorded V/S: Last Vital Signs Temp 36.7 C 12/23/20 12:10 Pulse 84 12/23/20 12:10 Resp 18 12/23/20 12:10 BP 133/91 H 12/23/20 12:10 Pulse Ox 96 12/23/20 12:10 - Orders/Labs/Meds Orders: Active Orders 24 hr Category Date Time Status Venous Doppler Lwr Ext Bi [US] Stat Exams 12/23/20 12:25 Taken Sodium Chloride 0.9% [Saline Flush] Med 12/23/20 12:24 Active 10 ml FLUSH ASDIRECTED PRN Sodium Chloride 0.9% [Saline Flush] Med 12/23/20 12:24 Active 2.5 ml FLUSH ASDIRECTED PRN Saline Lock Insert [OM.PC] Stat Oth 12/23/20 12:24 Ordered Medication Orders Sodium Chloride (Sodium Chloride 0.9% 10 Ml Syringe) 10 ml FLUSH ASDIRECTED PRN PRN Reason: Keep Vein Open Sodium Chloride (Sodium Chloride 0.9% 2.5 Ml Syringe) 2.5 ml FLUSH ASDIRECTED PRN PRN Reason: Keep Vein Open Labs: Laboratory Tests 12/23/20 12/23/20 12/23/20 Range/Units 12:37 12:37 12:37 WBC 5.41 (4.0-11.0) K/uL RBC 4.59 (4.50-5.90) M/uL Hgb 16.7 (13.0-17.0) g/dL Hct 47.0 (38.0-50.0) % MCV 102.4 H (80.0-98.0) fL MCH 36.4 H (27.0-32.0) pg MCHC 35.5 (31.0-37.0) g/dL RDW Std Deviation 48.7 (28.0-62.0) fl RDW Coeff of Michel 13 (11.0-15.0) % Plt Count 159 (150-400) K/uL MPV 9.70 (7.40-12.00) fL Neut % (Auto) 60.6 (48.0-80.0) % Lymph % (Auto) 22.6 (16.0-40.0) % [place] % (Auto) 13.5 (0.0-15.0) % Eos % (Auto) 2.4 (0.0-7.0) % Baso % (Auto) 0.9 (0.0-1.5) % Neut # (Auto) 3.3 (1.4-5.7) K/uL Lymph # (Auto) 1.2 (0.6-2.4) K/uL [place] # (Auto) 0.7 (0.0-0.8) K/uL Eos # (Auto) 0.1 (0.0-0.7) K/uL Baso # (Auto) 0.1 (0.0-0.1) K/uL Nucleated RBC % 0.0 /100WBC Nucleated RBCs # 0 K/uL INR 1.20 APTT 26.2 (18.6-31.3) SEC Sodium 138 (136-148) mmol/L Potassium 3.8 (3.5-5.1) mmol/L Chloride 102 (98-107) mmol/L Carbon Dioxide 29.4 (21.0-32.0) mmol/L BUN 12 (7.0-18.0) mg/dL Creatinine 0.9 (0.8-1.3) mg/dL Est Cr Clr Drug Dosing 96.41 mL/min Estimated GFR (MDRD) > 60.0 ml/min Glucose 87 (74-106) mg/dL Calcium 8.8 (8.5-10.1) mg/dL Magnesium 1.6 L (1.8-2.4) mg/dL Total Bilirubin 2.5 H (0.2-1.0) mg/dL AST 45 H (15-37) IU/L ALT 36 (14-63) IU/L Alkaline Phosphatase 121 H (46-116) U/L Total Protein 7.6 (6.4-8.2) g/dL Albumin 3.5 (3.4-5.0) g/dL Globulin 4.1 H (2.6-4.0) g/dL Albumin/Globulin Ratio 0.9 (0.9-1.6) Lipase 77 (73-393) U/L Meds: Medications Generic Name Dose Route Start Last Admin Trade Name Freq PRN Reason Stop Dose Admin Sodium Chloride 10 ml 12/23/20 12:24 Sodium Chloride 0.9% 10 Ml Syringe FLUSH ASDIRECTED PRN Keep Vein Open Sodium Chloride 2.5 ml 12/23/20 12:24 Sodium Chloride 0.9% 2.5 Ml Syringe FLUSH ASDIRECTED PRN Keep Vein Open Departure - Departure Time of Disposition: 13:35 Disposition: Home, Self-Care 01 Condition: Good Clinical Impression: Edema of both legs - Discharge Information Referrals: Sean Feliz MD [Ordering Only Provider] - Forms: ED Department Discharge Additional Instructions: Elevate your legs, potassium supplementation when you double your Lasix for the next 2 weeks, follow-up with your doctor within 2 weeks to recheck your labs and condition of your legs. [facility] - Primary Care [address] [place] [address] [place] [address] The following information is given to patients seen in the emergency department who are being discharged to home. This information is to outline your options for follow-up care. We provide all patients seen in our emergency department with a follow-up referral. The need for follow-up, as well as the timing and circumstances, are variable depending upon the specifics of your emergency department visit. If you don't have a primary care physician on staff, we will provide you with a referral. We always advise you to contact your personal physician following an emergency department visit to inform them of the circumstance of the visit and for follow-up with them and/or the need for any referrals to a consulting specialist. The emergency department will also refer you to a specialist when appropriate. This referral assures that you have the opportunity for follow-up care with a specialist. All of these measure are taken in an effort to provide you with optimal care, which includes your follow-up. Under all circumstances we always encourage you to contact your private physician who remains a resource for coordinating your care. When calling for follow-up care, please make the office aware that this follow-up is from your recent emergency room visit. If for any reason you are refused follow-up, please contact the [facility] Emergency Department at and asked to speak to the emergency department charge nurse. Sepsis Event Note (ED) - Evaluation Sepsis Screening Result: No Definite Risk - Focused Exam Vital Signs: Vital Signs Temp Pulse Resp BP Pulse Ox 12/23/20 12:10 36.7 C 84 18 133/91 H 96 - My Orders Last 24 Hours: My Active Orders 12/23/20 12:24 Sodium Chloride 0.9% [Saline Flush] 10 ml FLUSH ASDIRECTED PRN Sodium Chloride 0.9% [Saline Flush] 2.5 ml FLUSH ASDIRECTED PRN Saline Lock Insert [OM.PC] Stat 12/23/20 12:25 Venous Doppler Lwr Ext Bi [US] Stat - Assessment/Plan Last 24 Hours: My Active Orders 12/23/20 12:24 Sodium Chloride 0.9% [Saline Flush] 10 ml FLUSH ASDIRECTED PRN Sodium Chloride 0.9% [Saline Flush] 2.5 ml FLUSH ASDIRECTED PRN Saline Lock Insert [OM.PC] Stat 12/23/20 12:25 Venous Doppler Lwr Ext Bi [US] Stat
[2020-12-23 13:16] LABS: BLOOD UREA NITROGEN,BUN 12 mg/dL (7.0-18.0); CARBON DIOXIDE,CO2 29.4 mmol/L (21.0-32.0); CHLORIDE,CL 102 mmol/L (98-107); GLUCOSE RANDOM 87 mg/dL (74-106); LIPASE 77 U/L (73-393); POTASSIUM,K 3.8 mmol/L (3.5-5.1); SODIUM,NA 138 mmol/L (136-148)
--- NOTE | 2020-12-23 13:34 | US ---
INDICATION: B/L LOWER EXT SWELLING TECHNIQUE: Ultrasound venous duplex lower extremity bilateral. Compression venous exam was performed using ashton scale, color Doppler, and spectral Doppler imaging. COMPARISON: None. FINDINGS: Sonographic imaging demonstrates the common femoral, deep femoral, superficial femoral, popliteal, posterior tibial and greater saphenous veins to be fully compressible with normal color Doppler blood flow in both lower extremities. IMPRESSION: Normal bilateral lower extremity venous ultrasound, no sign of deep venous thrombosis. Dictated by: Humza Ding MD @ 12/23/2020 13:32:51 (Electronically Signed)
[2020-12-23 13:54] VITALS: BP 98/78; PULSE 98
== END 2020-12-23 13:50 | disposition home or self-care (01) ==
LOC: MW.ED 11:55
DX: R60.0 Localized edema (principal); I10 Essential (primary) hypertension; Z88.5 Allergy status to narcotic agent; Z88.6 Allergy status to analgesic agent
CPT/HCPCS: 36415; 80053; 83690; 83735; 85025; 85610; 85730; 93970; 93970-26; 99284-25

== ENCOUNTER 2021-07-01 18:38 | Emergency (ER) | payer MEDICARE, MEDICAID ==
[2021-07-01] MEDS ORDERED: Sodium Chloride 0.9% 1,000 ML IV ONE (19:25)
[2021-07-01] MEDS ORDERED: Sodium Chloride 0.9% 2.5 ML Syringe FLUSH PRN (19:25)
[2021-07-01] MEDS ORDERED: Sodium Chloride 0.9% 10 ML Syringe FLUSH PRN (19:25)
[2021-07-01 19:43] LABS: BLOOD UREA NITROGEN,BUN 4 mg/dL (7.0-18.0); CARBON DIOXIDE,CO2 29.2 mmol/L (21.0-32.0); CHLORIDE,CL 94 mmol/L (98-107); GLUCOSE RANDOM 98 mg/dL (74-106); LIPASE 70 U/L (73-393); POTASSIUM,K 3.6 mmol/L (3.5-5.1); SODIUM,NA 134 mmol/L (136-148)
[2021-07-01 20:01] LABS: ACETAMINOPHEN <2.0 ug/mL
--- NOTE | 2021-07-01 20:57 | EDM.PDOC ---
ED HPI GENERAL MEDICAL PROBLEM - General Chief Complaint: Gastrointestinal Problem Stated Complaint: EMS Time Seen by Provider: 07/01/21 19:24 - History of Present Illness INITIAL COMMENTS - FREE TEXT/NARRATIVE: HISTORY AND PHYSICAL: History of present illness: This is a 66-year-old gentleman with history significant for cholecystectomy, multiple abdominal hernia repairs, alcohol use disorder, cirrhosis, who presents ER today with a signed court order for alcohol detox secondary to patient exhibiting concerns of being a harm to himself. Patient was brought in by [facility]'s deputy secondary to his alcohol intoxication and need for detox per the court order. Patient currently has no complaints. Patient has no recent fevers, shakes, chills, nausea, vomiting, diarrhea, dysuria, frequency, urgency, chest pain, shortness of breath. Patient reports that he drinks heavily on a daily basis and initially did not want to stay in the ED and want to leave. After discussion with deputy sheriff bailiff the patient is amenable to staying and being transferred. Patient reports that he has never had episodes of alcohol withdrawal or alcohol seizures when he stopped drinking in the past. Patient reports that he is had an approximate 3-year period of abstinence from alcohol and about 1 year ago he started drinking again. Patient denies any homicidal or suicidal ideations. Review of systems: As per history of present illness and below otherwise all systems reviewed and negative. Past medical history: As per history of present illness and as reviewed below otherwise noncontributory. Surgical history: As per history of present illness and as reviewed below otherwise noncontributory. Social history: No reported history of drug abuse. Family history: As per history of present illness and as reviewed below otherwise noncontributory. Physical exam: This patient was seen and evaluated during the 2019 SARS-CoV-2 novel coronavirus pandemic period. Community viral transmission is ongoing at time of this encounter and the emergency department is operating under pandemic response procedures. Constitutional: Patient is oriented to person, place, and time. Appears well- developed and well-nourished. No distress. HEENT: Moist mucous membranes Head: Normocephalic and atraumatic Eyes: Right eye exhibits no discharge. Left eye exhibits no discharge. No scleral icterus Neck: Normal range of motion. No tracheal deviation present. Cardiovascular: Normal rate and regular rhythm. Pulmonary: Effort normal, no respiratory distress. Abdominal: No distention Musculoskeletal: Normal range of motion Neurologic: Alert and oriented to person, place and time. Skin: [employer], warm and dry. Psychiatric: Normal mood and affect. Behavior is normal. Judgment and thought content normal. Nursing note and vital signs have been reviewed Patient is alert awake and orient x3. Patient is aware of his environment. Patient has alcohol on his breath but is appropriate in his thought process. Diagnostics: Alcohol level: 354 CBC, CMP, INR unremarkable Covid negative Therapeutics: [] Assessment and plan: 66-year-old gentleman who presents ER today by Sheriff khan for court ordered alcohol detox. Patient has been medically cleared here in the ED. Patient is clinically intoxicated but no signs of alcohol withdrawal or history of seizures with alcohol withdrawal in the past. Patient has been medically cleared in the emergency department and will not need any further emergency evaluation. I have discussed the case with Dr. Damon in [facility] and has agreed to accept patient for alcohol detox. Definitive disposition and diagnosis as appropriate pending reevaluation and review of above. - Related Data Allergies Allergy/AdvReac Type Severity Reaction Status Date / Time codeine Allergy Nausea and Verified 07/01/21 19:03 Vomiting morphine Allergy Hallucinati Verified 07/01/21 19:03 ons zolpidem [From Ambien] AdvReac Nausea and Verified 07/01/21 19:03 Vomiting Home Meds: Home Meds Propranolol [Inderal] 10 mg PO BID 10/19/14 [History] Rifaximin [Xifaxan] 550 mg PO BID 10/20/14 [History] Spironolactone [Aldactone] 100 mg PO DAILY 12/14/18 [History] Furosemide [Lasix] 40 mg PO DAILY 07/17/19 [History] Lactulose 30 ml PO BID 12/23/20 [History] Pantoprazole Sodium [Protonix] 40 mg PO ACBREAKFAST 12/23/20 [History] dilTIAZem HCL [Diltiazem ER] 120 mg PO DAILY 12/23/20 [History] Past Medical History HEENT History: Reports: Impaired Vision Other HEENT History: wears glasses Cardiovascular History: Reports: Afib, Arrhythmia, Hypertension Other Cardiovascular History: A Fib Respiratory History: Reports: None Gastrointestinal History: Reports: Bowel Obstruction, Cirrhosis Genitourinary History: Reports: None Musculoskeletal History: Reports: None Neurological History: Reports: None Psychiatric History: Reports: Addiction Other Psychiatric History: History of ETOH Endocrine/Metabolic History: Reports: None Other Endocrine/Metabolic History: Hepatic Encephalopathy Hematologic History: Reports: None Immunologic History: Reports: None Oncologic (Cancer) History: Reports: None Dermatologic History: Reports: None - Infectious Disease History Infectious Disease History: Reports: None - Past Surgical History Head Surgeries/Procedures: Reports: None HEENT Surgical History: Reports: Tonsillectomy Cardiovascular Surgical History: Reports: None GI Surgical History: Reports: Cholecystectomy, Hernia, Abdominal, Hernia, Inguinal Other GI Surgeries/Procedures: liver shunt; hernia surgery 01/09/2017 Musculoskeletal Surgical History: Reports: None Other Musculoskeletal Surgeries/Procedures:: knee surgery Social & Family History - Family History Family Medical History: No Pertinent Family History - Tobacco Use Tobacco Use Status *Q: Never Tobacco User - Caffeine Use Caffeine Use: Reports: None Caffeine Use Comment: 1drink/day - Recreational Drug Use Recreational Drug Use: No ED ROS GENERAL - Review of Systems Review Of Systems: See Below ED EXAM, GENERAL - Physical Exam Exam: See Below Course - Vital Signs Last Recorded V/S: Last Vital Signs Temp 97.6 F 07/01/21 19:04 Pulse 98 07/01/21 19:04 Resp 16 07/01/21 19:04 BP 76/50 L 07/01/21 19:04 Pulse Ox 95 07/01/21 19:04 - Orders/Labs/Meds Orders: Active Orders 24 hr Category Date Time Status EKG Documentation Completion [RC] STAT Care 07/01/21 19:47 Active DRUG SCREEN, URINE [URCHEM] Stat Lab 07/01/21 18:57 Received Sodium Chloride 0.9% [Saline Flush] Med 07/01/21 19:25 Active 10 ml FLUSH ASDIRECTED PRN Sodium Chloride 0.9% [Saline Flush] Med 07/01/21 19:25 Active 2.5 ml FLUSH ASDIRECTED PRN Saline Lock Insert [OM.PC] Stat Oth 07/01/21 19:25 Ordered Medication Orders Sodium Chloride (Sodium Chloride 0.9% 10 Ml Syringe) 10 ml FLUSH ASDIRECTED PRN PRN Reason: Keep Vein Open Sodium Chloride (Sodium Chloride 0.9% 2.5 Ml Syringe) 2.5 ml FLUSH ASDIRECTED PRN PRN Reason: Keep Vein Open Labs: Laboratory Tests 07/01/21 07/01/21 07/01/21 Range/Units 18:57 19:05 19:05 WBC 7.44 (4.0-11.0) K/uL RBC 4.38 L (4.50-5.90) M/uL Hgb 15.4 (13.0-17.0) g/dL Hct 41.9 (38.0-50.0) % MCV 95.7 (80.0-98.0) fL MCH 35.2 H (27.0-32.0) pg MCHC 36.8 (31.0-37.0) g/dL RDW Std Deviation 48.0 (28.0-62.0) fl RDW Coeff of Michel 14 (11.0-15.0) % Plt Count 144 L (150-400) K/uL MPV 10.10 (7.40-12.00) fL Neut % (Auto) 55.1 (48.0-80.0) % Lymph % (Auto) 31.5 (16.0-40.0) % [place] % (Auto) 10.3 (0.0-15.0) % Eos % (Auto) 2.3 (0.0-7.0) % Baso % (Auto) 0.8 (0.0-1.5) % Neut # (Auto) 4.1 (1.4-5.7) K/uL Lymph # (Auto) 2.3 (0.6-2.4) K/uL [place] # (Auto) 0.8 (0.0-0.8) K/uL Eos # (Auto) 0.2 (0.0-0.7) K/uL Baso # (Auto) 0.1 (0.0-0.1) K/uL Nucleated RBC % 0.0 /100WBC Nucleated RBCs # 0 K/uL INR Sodium 134 L (136-148) mmol/L Potassium 3.6 (3.5-5.1) mmol/L Chloride 94 L (98-107) mmol/L Carbon Dioxide 29.2 (21.0-32.0) mmol/L BUN 4 L (7.0-18.0) mg/dL Creatinine 0.8 (0.8-1.3) mg/dL Est Cr Clr Drug Dosing 107.03 mL/min Estimated GFR (MDRD) > 60.0 ml/min Glucose 98 (74-106) mg/dL Calcium 8.8 (8.5-10.1) mg/dL Magnesium 1.5 L (1.8-2.4) mg/dL Total Bilirubin 2.3 H (0.2-1.0) mg/dL AST 98 H (15-37) IU/L ALT 63 (14-63) IU/L Alkaline Phosphatase 152 H (46-116) U/L Total Protein 8.6 H (6.4-8.2) g/dL Albumin 3.8 (3.4-5.0) g/dL Globulin 4.8 H (2.6-4.0) g/dL Albumin/Globulin Ratio 0.8 L (0.9-1.6) Lipase 70 L (73-393) U/L Urine Color YELLOW Urine Appearance CLEAR Urine pH 5.5 (5.0-8.0) Ur Specific [place] <= 1.005 (1.001-1.035) Urine Protein NEGATIVE (NEGATIVE) mg/dL Urine Glucose (UA) NEGATIVE (NEGATIVE) mg/dL Urine Ketones NEGATIVE (NEGATIVE) mg/dL Urine Occult Blood TRACE-INTACT H (NEGATIVE) Urine Nitrite NEGATIVE (NEGATIVE) Urine Bilirubin NEGATIVE (NEGATIVE) Urine Urobilinogen 0.2 (<2.0) EU/dL Ur Leukocyte Esterase NEGATIVE (NEGATIVE) Urine RBC 0-1 (0-2/HPF) Urine WBC 0-1 (0-5/HPF) Ur Epithelial Cells RARE (NONE-FEW) Urine Bacteria RARE (NEGATIVE) Salicylates (0-20) mg/dL Acetaminophen ug/mL Ethyl Alcohol 354 mg/dL SARS-CoV-2 RNA (ELAINE) (NEGATIVE) 07/01/21 07/01/21 07/01/21 Range/Units 19:05 19:05 19:54 WBC (4.0-11.0) K/uL RBC (4.50-5.90) M/uL Hgb (13.0-17.0) g/dL Hct (38.0-50.0) % MCV (80.0-98.0) fL MCH (27.0-32.0) pg MCHC (31.0-37.0) g/dL RDW Std Deviation (28.0-62.0) fl RDW Coeff of Michel (11.0-15.0) % Plt Count (150-400) K/uL MPV (7.40-12.00) fL Neut % (Auto) (48.0-80.0) % Lymph % (Auto) (16.0-40.0) % [place] % (Auto) (0.0-15.0) % Eos % (Auto) (0.0-7.0) % Baso % (Auto) (0.0-1.5) % Neut # (Auto) (1.4-5.7) K/uL Lymph # (Auto) (0.6-2.4) K/uL [place] # (Auto) (0.0-0.8) K/uL Eos # (Auto) (0.0-0.7) K/uL Baso # (Auto) (0.0-0.1) K/uL Nucleated RBC % /100WBC Nucleated RBCs # K/uL INR 1.17 Sodium (136-148) mmol/L Potassium (3.5-5.1) mmol/L Chloride (98-107) mmol/L Carbon Dioxide (21.0-32.0) mmol/L BUN (7.0-18.0) mg/dL Creatinine (0.8-1.3) mg/dL Est Cr Clr Drug Dosing mL/min Estimated GFR (MDRD) ml/min Glucose (74-106) mg/dL Calcium (8.5-10.1) mg/dL Magnesium (1.8-2.4) mg/dL Total Bilirubin (0.2-1.0) mg/dL AST (15-37) IU/L ALT (14-63) IU/L Alkaline Phosphatase (46-116) U/L Total Protein (6.4-8.2) g/dL Albumin (3.4-5.0) g/dL Globulin (2.6-4.0) g/dL Albumin/Globulin Ratio (0.9-1.6) Lipase (73-393) U/L Urine Color Urine Appearance Urine pH (5.0-8.0) Ur Specific [place] (1.001-1.035) Urine Protein (NEGATIVE) mg/dL Urine Glucose (UA) (NEGATIVE) mg/dL Urine Ketones (NEGATIVE) mg/dL Urine Occult Blood (NEGATIVE) Urine Nitrite (NEGATIVE) Urine Bilirubin (NEGATIVE) Urine Urobilinogen (<2.0) EU/dL Ur Leukocyte Esterase (NEGATIVE) Urine RBC (0-2/HPF) Urine WBC (0-5/HPF) Ur Epithelial Cells (NONE-FEW) Urine Bacteria (NEGATIVE) Salicylates <0.2 (0-20) mg/dL Acetaminophen <2.0 ug/mL Ethyl Alcohol mg/dL SARS-CoV-2 RNA (ELAINE) NEGATIVE (NEGATIVE) Meds: Medications Generic Name Dose Route Start Last Admin Trade Name Freq PRN Reason Stop Dose Admin Sodium Chloride 10 ml 07/01/21 19:25 Sodium Chloride 0.9% 10 Ml Syringe FLUSH ASDIRECTED PRN Keep Vein Open Sodium Chloride 2.5 ml 07/01/21 19:25 Sodium Chloride 0.9% 2.5 Ml Syringe FLUSH ASDIRECTED PRN Keep Vein Open Discontinued Medications Generic Name Dose Route Start Last Admin Trade Name Freq PRN Reason Stop Dose Admin Sodium Chloride 1,000 mls @ 999 mls/hr 07/01/21 19:25 Normal Saline IV 07/01/21 20:25 .Bolus ONE Departure - Departure Time of Disposition: 20:56 Disposition: DC/Tfer to Psych Hosp/Unit 65 Condition: Good Clinical Impression: Alcohol use disorder, Alcohol intoxication - Discharge Information Referrals: PCP,None [Primary Care Provider] - Sepsis Event Note (ED) - Evaluation Sepsis Screening Result: No Definite Risk - Focused Exam Vital Signs: Vital Signs Temp Pulse Resp BP Pulse Ox 07/01/21 19:04 97.6 F 98 16 76/50 L 95 - My Orders Last 24 Hours: My Active Orders 07/01/21 18:57 DRUG SCREEN, URINE [URCHEM] Stat 07/01/21 19:25 Sodium Chloride 0.9% [Saline Flush] 10 ml FLUSH ASDIRECTED PRN Sodium Chloride 0.9% [Saline Flush] 2.5 ml FLUSH ASDIRECTED PRN Saline Lock Insert [OM.PC] Stat 07/01/21 19:47 EKG Documentation Completion [RC] STAT - Assessment/Plan Last 24 Hours: My Active Orders 07/01/21 18:57 DRUG SCREEN, URINE [URCHEM] Stat 07/01/21 19:25 Sodium Chloride 0.9% [Saline Flush] 10 ml FLUSH ASDIRECTED PRN Sodium Chloride 0.9% [Saline Flush] 2.5 ml FLUSH ASDIRECTED PRN Saline Lock Insert [OM.PC] Stat 07/01/21 19:47 EKG Documentation Completion [RC] STAT
[2021-07-01 21:32] VITALS: BP 100/62; PULSE 90
== END 2021-07-01 21:20 ==
LOC: MW.ED 18:38
DX: F10.129 Alcohol abuse with intoxication, unspecified (principal); I10 Essential (primary) hypertension; I48.91 Unspecified atrial fibrillation; Z88.5 Allergy status to narcotic agent; Z88.8 Allergy status to other drugs, medicaments and biological substances; Z79.899 Other long term (current) drug therapy; Z20.822 Contact with and (suspected) exposure to COVID-19; Y90.8 Blood alcohol level of 240 mg/100 ml or more
CPT/HCPCS: 36415; 80053; 80143; 80179; 80305; 80307; 81001; 83690; 83735; 85025; 85610; 99285; U0002

== ENCOUNTER 2021-09-02 05:52 | Emergency (ER) | payer MEDICARE, MEDICAID ==
[2021-09-02] MEDS ORDERED: Propranolol 20 MG Tab PO ONE (07:05)
[2021-09-02] MEDS ORDERED: Diltiazem IR 60 MG Tab PO ONE (07:05)
[2021-09-02 08:16] VITALS: BP 138/93; PULSE 112
== END 2021-09-02 08:16 | disposition home or self-care (01) ==
LOC: MW.ED 05:52
DX: S20.211A Contusion of right front wall of thorax, initial encounter (principal); M25.722 Osteophyte, left elbow; I48.91 Unspecified atrial fibrillation; I10 Essential (primary) hypertension; Z88.5 Allergy status to narcotic agent; Z88.8 Allergy status to other drugs, medicaments and biological substances; Z79.899 Other long term (current) drug therapy; W22.09XA Striking against other stationary object, initial encounter
CPT/HCPCS: 71101-26-RT; 71101-RT; 73070-26-RT; 73070-RT; 81001; 93005; 99284-25; A9270-GY

== ENCOUNTER 2022-03-05 10:47 | Emergency (ER) | payer MEDICARE, MEDICAID ==
[2022-03-05] MEDS ORDERED: Diphtheria,Pertussis(Acell),Tetanus Vaccine 0.5 ML Syringe IM ONE (10:58)
[2022-03-05] MEDS ORDERED: Sodium Chloride 0.9% 1,000 ML IV ONE ×3 (11:20→15:43)
[2022-03-05 12:20] LABS: ACETAMINOPHEN 2.6 ug/mL; BLOOD UREA NITROGEN,BUN 37 mg/dL (7.0-18.0); CARBON DIOXIDE,CO2 20.2 mmol/L (21.0-32.0); CHLORIDE,CL 100 mmol/L (98-107); GLUCOSE RANDOM 81 mg/dL (74-106); POTASSIUM,K 4.2 mmol/L (3.5-5.1); SODIUM,NA 138 mmol/L (136-148)
[2022-03-05 12:31] LABS: CORONAVIRUS COVID-19 NAA NEGATIVE (NEGATIVE); INFLUENZA A NAA NEGATIVE (NEGATIVE); INFLUENZA B NAA NEGATIVE (NEGATIVE)
[2022-03-05 12:35] LABS: ESTIMATED GFR 22 mL/min (>60)
[2022-03-05] MEDS ORDERED: Magnesium Sulfate/Water 4 GM in Premix Bag 1 BAG IV ONE (12:55)
[2022-03-05] MEDS ORDERED: Thiamine 200 MG/2 ML MDV IVPUSH ONE (12:59)
[2022-03-05] MEDS ORDERED: Folic Acid 1 MG/0.2 ML UD Syringe IV STA (12:59)
[2022-03-05] MEDS ORDERED: Piperacillin/Tazobactam 3.375 GM in Sodium Chloride 0.9% 50 ML IV ONE (13:42)
[2022-03-05] MEDS ORDERED: VANCOmycin 2 GM/400 ML 2 GM in Premix Bag 1 BAG IV ONE (14:15)
[2022-03-05 16:10] VITALS: BP 118/65; PULSE 94
== END 2022-03-05 16:50 ==
LOC: MW.ED 10:47
DX: R41.82 Altered mental status, unspecified (principal); N17.9 Acute kidney failure, unspecified; S51.812A Laceration without foreign body of left forearm, initial encounter; S51.811A Laceration without foreign body of right forearm, initial encounter; E86.0 Dehydration; R74.01 Elevation of levels of liver transaminase levels; D72.829 Elevated white blood cell count, unspecified; E83.42 Hypomagnesemia; F15.10 Other stimulant abuse, uncomplicated; E87.2 Acidosis; I10 Essential (primary) hypertension; I48.91 Unspecified atrial fibrillation; Z20.822 Contact with and (suspected) exposure to COVID-19; Z23 Encounter for immunization; Z88.5 Allergy status to narcotic agent; Z88.8 Allergy status to other drugs, medicaments and biological substances
CPT/HCPCS: 0240U; 36415; 70450; 71045; 80053; 80143; 80179; 80305; 80307; 81001; 82140; 83605; 83735; 84443; 84484; 85025; 85610; 87040; 87077; 87186; 90471; 90715; 93005; 96361; 96365; 96366; 96368; 96375; 99285; J2543; J3370; J3411; J3475; J7030; 93010

== ENCOUNTER 2022-09-03 19:48 | Emergency (ER) | payer MEDICARE, MEDICAID ==
[2022-09-03 19:54] VITALS: BP 131/106; PULSE 118
== END 2022-09-03 20:45 ==
LOC: MW.ED 19:48
DX: F10.929 Alcohol use, unspecified with intoxication, unspecified (principal); I48.91 Unspecified atrial fibrillation; I10 Essential (primary) hypertension; Z88.5 Allergy status to narcotic agent; Z88.8 Allergy status to other drugs, medicaments and biological substances; Z79.899 Other long term (current) drug therapy
CPT/HCPCS: 99283

== ENCOUNTER 2022-12-07 10:43 | Emergency (ER) | payer MEDICARE, MEDICAID ==
[2022-12-07] MEDS ORDERED: Erythromycin Base 0.5% Ophth Oint 1 GM Tube EYEBOTH ONE (11:40)
[2022-12-07 13:14] VITALS: BP 119/65; PULSE 76
== END 2022-12-07 13:13 | disposition home or self-care (01) ==
LOC: MW.ED 10:43
DX: H00.016 Hordeolum externum left eye, unspecified eyelid (principal); I48.91 Unspecified atrial fibrillation; I10 Essential (primary) hypertension; Z79.899 Other long term (current) drug therapy; Z88.5 Allergy status to narcotic agent; Z88.8 Allergy status to other drugs, medicaments and biological substances
CPT/HCPCS: 99283; A9270

== ENCOUNTER 2023-02-18 09:18 | Emergency (ER) | payer SELFPAY ==
[2023-02-18] MEDS ORDERED: Lidocaine 1% 5 ML VIAL INJECT ONE (09:43)
[2023-02-18 10:48] VITALS: BP 124/76; PULSE 91
== END 2023-02-18 10:47 | disposition home or self-care (01) ==
LOC: MW.ED 09:18 → MERGE 09:18 → MW.ED 10:47
DX: S30.853A Superficial foreign body of scrotum and testes, initial encounter (principal)
CPT/HCPCS: 10120; 99282; 99283; J3490